=== PATIENT | female | born 1995 | race Caucasian/White ===

== ENCOUNTER 2021-10-01 14:58 | Emergency (ER) | payer OTHER, SELFPAY ==
--- NOTE | ~2021-10-01 | XR_ITS ---
XR chest 2V DATE: 10/01/2021 15:16 INDICATION: Shortness of breath, palpitations for 2 weeks TECHNIQUE: PA and lateral views COMPARISON: None FINDINGS: Normal heart size. No hilar or mediastinal enlargement. No pulmonary infiltrate or consolid ation, pleural effusion or pulmonary vascular congestion or pneumothorax. Included skeletal structures are unremarkable. IMPRESSION: No active cardiopulmonary disease Reviewed, dictated and finalized at location A.
--- NOTE | 2021-10-01 15:00 | ECG_ITS ---
Measurements Intervals [place] Rate: 89 P: 58 VT: 153 QRS: 42 QRSD: 88 T: 53 QT: 339 QTc: 414 Interpretive Statements SINUS RHYTHM NONSPECIFIC T-WAVE ABNORMALITY Electronically Signed On 10-02-2021 11:09:19 CDT by Dariel Hernandez M.D.
[2021-10-01 15:02] VITALS: BP 133/81; PULSE 94; RESP 18; TEMP 36.7; O2SAT 100
[2021-10-01 15:13] LABS: Basophils Percent Auto 0.3 % (0.2-1.2); Eosinophils Absolute Auto 0.2 K/mm3 (0-0.3); Eosinophils Percent Auto 1.4 % (0-4.4); Hematocrit 46.9 % (37.0-47.0); Hemoglobin 16.8 g/dL (12.0-15.0); Immature Granulocyte Absolute 0.02 K/mm3 (0.00-0.031); Immature Granulocyte Percent A 0.2 % (0-0.5); Lymphocytes Absolute Auto 3.07 K/mm3 (0.9-3.2); Lymphocytes Percent Auto 27.1 % (18.3-44.2); Mean Corpuscular HGB Conc 35.8 g/dl (32-36); Mean Corpuscular Hemoglobin 32.7 pg (26-34); Mean Corpuscular Volume 91.4 fl (80-100); Mean Platelet Volume 10.4 fl (7.4-10.4); Monocytes Absolute Auto 0.5 K/mm3 (0.1-0.6); Monocytes Percent Auto 4.7 % (2.6-8.5); Neutrophils Absolute Auto 7.5 K/mm3 (1.3-6.7); Neutrophils Percent Auto 66.3 % (45.5-73.1); Platelet Count Result 301 k/mm3 (150-375); Red Blood Count 5.13 M/mm3 (4.2-5.4); Red Cell Distribution Width 12.3 % (11.5-14.5); White Blood Count 11.3 K/mm3 (4.5-10.0)
[2021-10-01 15:24] LABS: Alanine Aminotransferase 16 U/L (6-35); Albumin Level 4.8 g/dL (3.5-5.1); Alkaline Phosphatase 65 U/L (38-126); Anion Gap 8 mmol/L (8-16); Aspartate Amino Transferase 22 U/L (14-36); Bilirubin,Total 0.4 mg/dL (0.2-1.3); Blood Urea Nitrogen 11 mg/dL (7-17); Calcium 9.3 mg/dL (8.4-10.2); Carbon Dioxide 25 mmol/L (22-30); Chloride 105 mmol/L (98-107); Estimated CRCL calculation 106 ml/min; Estimated Glomerular Filt Rate > 60; Glucose 94 mg/dL (65-110); Sodium 138 mmol/L (137-145)
[2021-10-01 16:31] VITALS: BP 108/72; PULSE 88; RESP 20; TEMP 36.7; O2SAT 99
--- NOTE | 2021-10-01 16:39 | ED.GENADULT ---
HPI - General Adult General Chief complaint: Shortness of Breath/Dyspnea Stated complaint: increased HR, SOB, dizzy Time Seen by Provider: 10/01/21 16:31 Source: RN notes reviewed History of Present Illness HPI narrative: Patient presents emergency room from home for palpitations. Patient states for the past 2 weeks she is feeling her heart is racing. She states that this is a constant feeling for the past 2 weeks and she feels like the heart is always racing nothing seems to make it better or worse she does note some mild shortness of breath with these symptoms but denies any chest pain she also notes that when she stands up she feels lightheaded and improves when she lays down patient denies any fevers or chills abdominal pain nausea vomiting diarrhea or any other symptoms states that she did recently stop taking her lorazepam cold turkey 2 weeks ago and the symptoms seem to occur at the time that occurred she states she had been on lorazepam for chronic anxiety but did not like the way it made her felt so she is decided to stop taking it Related Data Allergies Allergy/AdvReac Type Severity Reaction Status Date / Time No Known Allergies Allergy Verified 12/07/15 20:22 Review of Systems Review of Systems: Gen.: Denies fevers or chills ENT: Denies congestion Respiratory: Ports shortness of breath CV: See HPI GI: Denies abdominal pain nausea, emesis or diarrhea denies burning, urgency, frequency or hematuria Musculoskeletal: Denies back pain or muscle pain Neuro: Denies numbness, tingling, weakness or focal weakness reports lightheadedness with standing Skin: Denies rash Except as documented, all other systems reviewed and negative [facility] Past Medical History Medical History (Updated 10/01/21 @ 19:25 by Sanford Carrizales DO) Anxiety Social History Social History (Updated 10/01/21 @ 16:41 by Sanford Carrizales DO) Smoking status: Never smoker Alcohol intake: current Exam Narrative: APPEARANCE: No acute distress, nontoxic, resting in bed EYES: EOMI HEENT: Normocephalic, atraumatic, OMM RESPIRATORY: No respiratory distress Clear to auscultation bilaterally with no rhonchi wheezing or rales. CARDIOVASCULAR: Regular rate and rhythm without murmurs rubs or gallops. ABDOMINAL: Soft, nontender, nondistended, no rebound or guarding MUSCULOSKELETAl: Moves all extremities. No clubbing, cyanosis or edema. NEURO: Awake and alert. Following commands, speech normal, no focal deficits SKIN:: Warm, dry. No rashes lesions or abrasions PSYCHIATRIC: Normal affect/mood, Course Course Emergency Course: Patient remained on cardiac exercise specialist no arrhythmias noted Discussed with patient results of workup and diagnosis. Discussed need for follow-up with primary care, proper use of medication, and reasons to return to the emergency department. Patient understands and agrees to current treatment plan Vital Signs Vital signs: Vital Signs Temperature 98.1 F 10/01/21 15:02 Pulse Rate 94 10/01/21 15:02 Respiratory Rate 18 10/01/21 15:02 Blood Pressure 133/81 10/01/21 15:02 Pulse Oximetry 100 10/01/21 15:02 Oxygen Delivery Room Air 10/01/21 15:02 Temperature 98.0 F 10/01/21 16:31 Pulse Rate 72 10/01/21 19:19 Respiratory Rate 18 10/01/21 19:19 Blood Pressure 138/72 10/01/21 19:19 Pulse Oximetry 99 10/01/21 19:19 Oxygen Delivery Room Air 10/01/21 16:31 Medical Decision Making MDM Narrative Medical decision making narrative: Patient presents for heart palpitations and the feeling of dizziness described as lightheadedness when she stands up ongoing for the past 2 weeks since she stopped taking lorazepam. Patient with negative D-dimer troponin negative in the ER with symptoms constant for the past 2-week remained on cardiac exercise specialist with no arrhythmias noted lab work within normal limits feel patient may be discharged follow-up as an outpatient Vital Signs Vital Signs: Vital Signs Tempera
[2021-10-01 16:46] VITALS: BP 122/81; PULSE 62
[2021-10-01 16:47] VITALS: BP 117/83; BP 126/78; PULSE 80; PULSE 93
[2021-10-01] MEDS: SODIUM CHLORIDE 0.9% IV 1,000 ML 999 ML IV CONT (16:57)
[2021-10-01 17:58] LABS: D Dimer < 0.27 ug/mL (<0.48)
[2021-10-01 18:27] LABS: Troponin I < 0.012 ng/mL (0.000-0.034)
[2021-10-01 19:19] VITALS: BP 138/72; PULSE 72; RESP 18; O2SAT 99
== END 2021-10-01 19:34 | disposition home or self-care (01) ==
PROVIDERS: Emergency Provider Emergency Medicine; PCP Internal Medicine
DX: R00.2 Palpitations (principal); R42 Dizziness and giddiness; F41.9 Anxiety disorder, unspecified
CPT/HCPCS: 36415; 71046; 80053; 81025; 83735; 84443; 84484; 85025; 85380; 93005; 96360; 99284; J7030

== ENCOUNTER 2022-02-21 17:11 | Emergency (ER) | payer OTHER, SELFPAY ==
[2022-02-21] VITALS (17 sets, daily range): BP systolic 98–123; BP diastolic 55–90; PULSE 65–87; RESP 13–21; TEMP 36.6; O2SAT 99–100
--- NOTE | ~2022-02-21 | CT_ITS ---
EXAMINATION: CTA chest PE protocol DATE: 02/21/2022 22:00 INDICATION: Dyspnea, chest heaviness. Elevated d-dimer. TECHNIQUE: Computed tomography angiography (CTA) of the chest was performed with 100 mL Omnipaque-350 intravenous contrast timed to evaluate the pulmonary arteries. Coronal maximum intensity projection 3D-reconstructions were created by the technologist. Automated exposure control and iterative reconst ruction technique were employed. Exam dose: 547.51 mGy-cm total exam DLP. COMPARISON: 02/21/2022 PA and lateral chest FINDINGS: The pulmonary arteries are moderately opacified, without evidence of pulmonary embolism. No thoracic aortic aneurysm or dissection. Normal heart size. No pericardial or pleural effusion. No hilar or mediastinal mass lesion or lymphadenopathy. No pulmonary infiltrate or consolidation or pulmonary mass lesion. No suspicious osteolytic or osteoblastic lesions.. IMPRESSION: Negative; no evidence of pulmonary embolism Reviewed, dictated and finalized at Location A. Reviewed, dictated and finalized at location A.
--- NOTE | ~2022-02-21 | XR_ITS ---
XR chest 2V DATE: 02/21/2022 17:33 INDICATION: Chest pain, midsternal to left-sided pressure for 8 months, shortness of breath TECHNIQUE: PA and lateral views COMPARISON: 10/01/2021 2 view chest FINDINGS: Normal heart size. No hilar or mediastinal enlargement. No pulmonary infiltrate or consolid ation, pleural effusion or pulmonary vascular congestion or pneumothorax. IMPRESSION: Negative chest Reviewed, dictated and finalized at location A. IMPRESSION: Negative chest
--- NOTE | 2022-02-21 17:13 | ECG_ITS ---
Measurements Intervals [place] Rate: 93 P: 44 [place]: 162 QRS: 30 QRSD: 77 T: 38 QT: 331 QTc: 414 Interpretive Statements SINUS RHYTHM BASELINE ARTIFACT LOW-VOLTAGE QRS IN PRECORDIAL LEADS BORDERLINE ECG COMPARED TO ECG 10/01/2021 15:07:09 NO SIGNIFICANT CHANGES Electronically Signed On 02-22-2022 16:35:40 CDT by Gideon Hayes M.D.
[2022-02-21 17:37] LABS: Basophils Percent Auto 0.3 % (0.2-1.2); Eosinophils Absolute Auto 0.2 K/mm3 (0-0.3); Eosinophils Percent Auto 1.6 % (0-4.4); Hematocrit 42.3 % (37.0-47.0); Hemoglobin 15.3 g/dL (12.0-15.0); Immature Granulocyte Absolute 0.04 K/mm3 (0.00-0.031); Immature Granulocyte Percent A 0.4 % (0-0.5); Lymphocytes Absolute Auto 3.15 K/mm3 (0.9-3.2); Lymphocytes Percent Auto 32.4 % (18.3-44.2); Mean Corpuscular HGB Conc 36.2 g/dl (32-36); Mean Corpuscular Volume 88.5 fl (80-100); Mean Platelet Volume 10.4 fl (7.4-10.4); Monocytes Absolute Auto 0.6 K/mm3 (0.1-0.6); Monocytes Percent Auto 6.1 % (2.6-8.5); Neutrophils Absolute Auto 5.8 K/mm3 (1.3-6.7); Neutrophils Percent Auto 59.2 % (45.5-73.1); Platelet Count Result 297 k/mm3 (150-375); Red Blood Count 4.78 M/mm3 (4.2-5.4); Red Cell Distribution Width 12.6 % (11.5-14.5); White Blood Count 9.7 K/mm3 (4.5-10.0)
[2022-02-21 17:45] LABS: Prothrombin Time 12.9 Seconds (11.1-14.7)
[2022-02-21 17:47] LABS: Partial Thromboplastin Time 22.5 SECONDS (22.3-36.8)
[2022-02-21 18:07] LABS: Alanine Aminotransferase 19 U/L (6-35); Albumin Level 4.4 g/dL (3.5-5.1); Alkaline Phosphatase 42 U/L (38-126); Anion Gap 11 mmol/L (8-16); Aspartate Amino Transferase 26 U/L (14-36); Bilirubin,Total 0.4 mg/dL (0.2-1.3); Blood Urea Nitrogen 17 mg/dL (7-17); Calcium 8.8 mg/dL (8.4-10.2); Carbon Dioxide 22 mmol/L (22-30); Chloride 104 mmol/L (98-107); Estimated CRCL calculation 105 ml/min; Estimated Glomerular Filt Rate > 60; Glucose 94 mg/dL (65-110); Lipase 73 U/L (23-300); Sodium 137 mmol/L (137-145)
[2022-02-21 18:15] LABS: Troponin I < 0.012 ng/mL (0.000-0.034)
[2022-02-21] MEDS: ALBUTEROL SULFATE NEB 2.5 MG/3 ML INH 5 MG INHALATION (20:36)
[2022-02-21] MEDS: IPRATROPIUM BR 0.02% INH SOLN 0.5 MG/2.5 ML VIAL INHALATION (20:37)
--- NOTE | 2022-02-21 21:45 | ED.CHESTPAIN ---
HPI - Chest Pain General Chief Complaint: Chest Pain Stated Complaint: chest feels heavy Time Seen by Provider: 02/21/22 20:02 Source: RN notes reviewed History of Present Illness HPI narrative: Patient presents emergency room from home for chest pain. Patient states that she has been having chest heaviness for the past 8 months since she had COVID. She states that the heaviness is constantly there is not resolved over the past 8 months states that she feels like she cannot take a deep breath and it makes her feel short of breath she states nothing makes his symptoms better or worse she denies any fevers or chills abdominal pain nausea vomiting or any other Related Data Allergies Allergy/AdvReac Type Severity Reaction Status Date / Time No Known Allergies Allergy Verified 02/21/22 20:07 Review of Systems Review of Systems: Gen.: Denies fevers or chills ENT: Denies congestion Respiratory: Reports shortness of breath CV: Reports chest pain GI: Denies abdominal pain nausea, emesis or diarrhea Musculoskeletal: Denies back pain or muscle pain Neuro: Denies numbness, tingling, weakness or focal weakness Skin: Denies rash Except as documented, all other systems reviewed and negative [facility] Past Medical History Medical History Anxiety COVID-19 Encounter to establish care Major depression Sinus tachycardia Tobacco abuse Surgical History Surgical History (Updated 01/17/22 @ 10:46 by RAJAN Phillips) History of tonsillectomy (~2009) Family History Family History (Updated 01/17/22 @ 10:45 by RAJAN Phillips) Mother Diabetes mellitus Depression Anxiety Social History Social History Smoking packs per day: 0.5 Smoking cigarettes per day: 10.0 Smoking status: Current every day smoker Alcohol intake: current Drinks per week: 6 Alcohol use details: Beer Substance use: never Exam Narrative: APPEARANCE: No acute distress, nontoxic, resting in bed EYES: EOMI HEENT: Normocephalic, atraumatic, OMM RESPIRATORY: No respiratory distress Clear to auscultation bilaterally with no rhonchi wheezing or rales. CARDIOVASCULAR: Regular rate and rhythm without murmurs rubs or gallops. ABDOMINAL: Soft, nontender, nondistended, no rebound or guarding MUSCULOSKELETAl: Moves all extremities. No clubbing, cyanosis or edema. NEURO: Awake and alert. Following commands, speech normal, no focal deficits SKIN:: Warm, dry. No rashes lesions or abrasions PSYCHIATRIC: Normal affect/mood, Course Course Emergency Course: Following breathing treatment patient is feeling mildly improved Discussed with patient results of workup and diagnosis. Discussed need for follow-up with primary care, proper use of medication, and reasons to return to the emergency department. Patient understands and agrees to current treatment plan Vital Signs Vital signs: Vital Signs Temperature 97.9 F 02/21/22 17:22 Pulse Rate 86 02/21/22 17:22 Respiratory Rate 18 02/21/22 17:22 Blood Pressure 123/90 02/21/22 17:22 Pulse Oximetry 100 02/21/22 17:22 Oxygen Delivery Room Air 02/21/22 17:22 Temperature 97.9 F 02/21/22 17:22 Pulse Rate 76 02/21/22 21:45 Respiratory Rate 19 02/21/22 21:45 Blood Pressure 115/73 02/21/22 21:34 Pulse Oximetry 100 02/21/22 21:45 Oxygen Delivery Room Air 02/21/22 20:39 MDM - Chest Pain MDM Narrative Medical decision making narrative: Patient's EKGs and labs are without significant high risk changes. Cardiac risk factors reviewed. Patient is felt likely low risk for ACS and reasonable for further risk stratification testing as an outpatient. No aneurysm PE or pneumonia seen on evaluation CTA chest. Patient's pain is been constant for months with negative troponin in the ED.. Patient is felt to be a reasonable candidate for continued evaluation as an outpatient
== END 2022-02-21 22:36 | disposition home or self-care (01) ==
PROVIDERS: Emergency Provider Emergency Medicine; PCP Nurse Practitioner Family
DX: R07.89 Other chest pain (principal); Z86.16 Personal history of COVID-19; F17.210 Nicotine dependence, cigarettes, uncomplicated; R94.31 Abnormal electrocardiogram [ECG] [EKG]
CPT/HCPCS: 36415; 71046; 71275; 80053; 83690; 84484; 85025; 85380; 85610; 85730; 93005; 94640; 99284; Q9967

== ENCOUNTER 2023-04-02 09:34 | Observation (INO) | payer OTHER, SELFPAY ==
[2023-04-02] VITALS (18 sets, daily range): BP systolic 101–138; BP diastolic 39–86; PULSE 66–92; RESP 16–20; TEMP 36.3–36.8; O2SAT 98–100; BMI 35.2
--- NOTE | ~2023-04-02 | US_ITS ---
EXAMINATION: US soft tissue pelvic DATE: 04/02/2023 12:09 INDICATION: A few days of perirenal pain and erythema TECHNIQUE: Multiple grayscale and Doppler ultrasound images of the perianal region of concern were ob tained. COMPARISON: None FINDINGS: 1.6 x 1.6 x 1.6 cm region in the superficial subcutaneous tissues to the left of the anus which is pr imarily hypoechoic with small peripheral anechoic region. There is induration in the overlying subder mal tissues and prominent surrounding hyperemia on color Doppler. No evident internal vascular flow o n color Doppler. There is a 3 mm diameter hypoechoic likely fistulous tract extending from the region of the anus to to indicate with the lesion. The lesion extends to within <3 mm the skin surface. The re is an additional hypoechoic region extending from the lesion. The skin surface appropriate dilatat ion of the fire management officer no associated skin defect is appreciated. IMPRESSION: 1. Cellulitis surrounding a 1.6 cm diameter likely perianal abscess with 3 mm diameter likely fistulo us tract extending towards the anus. Reviewed, dictated and finalized at location A. SPORTATION DEPARTMENT SUPERVISOR IMPRESSION: 1. Cellulitis surrounding a 1.6 cm diameter likely perianal abscess with 3 mm d iameter likely fistulous tract extending towards the anus.
--- NOTE | ~2023-04-02 | US_ITS ---
Pelvic ultrasound. Clinical History: First trimester , assess for dates and viability Technique: Realtime transabdominal and transvaginal scanning of the pelvis was performed. Color flow Doppler and Doppler spectral analysis were performed. Findings: The uterus is anteverted, and contains an intrauterine gestation. [place]-rump length of 4.8 cm corresponds to an estimated gestational age of 11 weeks 4 days. heart rate is 167 bpm. Proba ble small subchronic hemorrhage measuring 1.7 x 1.3 x 1.5 cm. The right ovary is not visualized. No significant right ovarian or adnexal mass is seen. The left ovary measures 2.0 x 2.8 x 1.5 cm. No significant left ovarian or adnexal mass is seen. There is no evidence of free fluid in the cul de sac. Impression: Live intrauterine gestation with estimated gestational age of 11 weeks 4 days. heart rate is 16 7 bpm. Probable small subchorionic hemorrhage, as detailed above. Reviewed, dictated and finalized at location . ING UNIT MECHANIC Impression: Live intrauterine gestation with estimated gestational age of 11 weeks 4 days. heart rate is 167 bpm. Probable small subchorionic hemorrhage, as detailed above.
--- NOTE | 2023-04-02 09:50 | ED.GENADULT ---
HPI - General Adult General Chief complaint: Unspecified <OPAL Brasher Last Filed: 04/02/23 17:24> Stated complaint: think i have infection, pain to sit down <OPAL Brasher Last Filed: 04/02/23 17:24> Time Seen by Provider: 04/02/23 09:43 <OPAL Brasher Last Filed: 04/02/23 17:24> Source: patient <OPAL Brasher Last Filed: 04/02/23 17:24> Mode of arrival: ambulatory <OPAL Brasher Filed: 04/02/23 17:24> Limitations: no limitations <OPAL Brasher Last Filed: 04/02/23 17:24> History of Present Illness HPI narrative: Patient is a 27 y/o female who presents to the ED with c/o perineal pain. Patient reports she noticed an area of pain to the left of her anus in her perineal region around 4 days ago. The pain progressively worsened 2 days ago. She states she is having difficulty sitting down. She is unsure if she has a hemorrhoid or other infection. States she has had a previous hemorrhoid, but denied issues with it. She reports chills, denies fever. Patient is currently 11 weeks gestation, . She denies any abdominal pain or vaginal bleeding. Denies nausea, vomiting. Denies pain with BM, constipation, rectal bleeding, melena. OBGYN is Dr. Samuel. <OPAL Brasher Last Filed: 04/02/23 17:24> Related Data Home medications: Home Medications Medication Instructions Recorded Confirmed lorazepam 0.5 mg tablet 0.5 mg PO BID 04/02/23 04/02/23 <OPAL Brasher Last Filed: 04/02/23 17:24> Allergies/adverse reactions: Allergies Allergy/AdvReac Type Severity Reaction Status Date / Time No Known Allergies Allergy Verified 04/02/23 09:45 <OPAL Brasher Last Filed: 04/02/23 17:24> Review of Systems Review of Systems: CONSTITUTIONAL: See HPI. CARDIOVASCULAR: Denies chest pain. RESPIRATORY: Denies dyspnea. GASTROINTESTINAL: Denies abdominal pain, nausea, vomiting, constipation, or diarrhea. GENITOURINARY: Denies vaginal bleeding, dysuria or hematuria. SKIN: See HPI. <Padma Malagon PA-C - Last Filed: 04/02/23 17:24> All systems reviewed & are unremarkable except as noted in HPI and below <Padma Malagon PA-C - Last Filed: 04/02/23 17:24> PMFSH Past Medical History Medical History: Medical History Anxiety Atypical chest pain BMI 32.0-32.9,adult BMI 34.0-34.9,adult COVID-19 Encounter to establish care Major depression Sinus tachycardia Tobacco abuse <Padma Malagon PA-C - Last Filed: 04/02/23 17:24> Surgical History Surgical History: Surgical History History of tonsillectomy (~2009) <Padma Malagon PA-C - Last Filed: 04/02/23 17:24> Family History Family History: Family History Mother Diabetes mellitus Depression Anxiety <Padma Malagon PA-C - Last Filed: 04/02/23 17:24> Social History Social History: Social History Smoking packs per day: 0.5 Smoking cigarettes per day: 10.0 Smoking status: Current every day smoker Alcohol intake: never Alcohol use details: Occasionally Substance use: never Substance use type: does not use Lack of Transportation: No Lack of Food: Never True Current Housing: I Have Housing Concerned About Future Housing: No Difficulty Paying Gas/Electric Bills: No Difficulty Paying for Meds: No Currently Unemployed: YES Education: Grade School Difficulty w/ Childcare or Family Care: No Spiritual care concerns: No <Padma Malagon PA-C - Last Filed: 04/02/23 17:24> Exam Narrative: GENERAL: Mildly uncomfortable appearing, obese with BMI 35.2, non-toxic, in no acute d
[2023-04-02 10:32] LABS: Basophils Percent Auto 0.2 % (0.2-1.2); Eosinophils Percent Auto 0.3 % (0-4.4); Hematocrit 37.5 % (37.0-47.0); Hemoglobin 13.1 g/dL (12.0-15.0); Immature Granulocyte Absolute 0.04 K/mm3 (0.00-0.031); Immature Granulocyte Percent A 0.4 % (0-0.5); Lymphocytes Absolute Auto 1.53 K/mm3 (0.9-3.2); Lymphocytes Percent Auto 14.7 % (18.3-44.2); Mean Corpuscular HGB Conc 34.9 g/dl (32-36); Mean Corpuscular Hemoglobin 31.8 pg (26-34); Mean Platelet Volume 10.6 fl (7.4-10.4); Monocytes Absolute Auto 0.6 K/mm3 (0.1-0.6); Monocytes Percent Auto 5.7 % (2.6-8.5); Neutrophils Absolute Auto 8.2 K/mm3 (1.3-6.7); Neutrophils Percent Auto 78.7 % (45.5-73.1); Platelet Count Result 244 k/mm3 (150-375); Red Blood Count 4.12 M/mm3 (4.2-5.4); Red Cell Distribution Width 12.1 % (11.5-14.5); White Blood Count 10.4 K/mm3 (4.5-10.0)
[2023-04-02 10:42] LABS: Alanine Aminotransferase 8 U/L (6-35); Alkaline Phosphatase 54 U/L (38-126); Anion Gap 8 mmol/L (8-16); Aspartate Amino Transferase 14 U/L (14-36); Bilirubin,Total 0.3 mg/dL (0.2-1.3); Blood Urea Nitrogen 10 mg/dL (7-17); Calcium 8.8 mg/dL (8.4-10.2); Carbon Dioxide 24 mmol/L (22-30); Chloride 103 mmol/L (98-107); Estimated CRCL calculation 130 ml/min; Estimated Glomerular Filt Rate > 60; Glucose 96 mg/dL (65-110); Sodium 135 mmol/L (137-145)
[2023-04-02] MEDS: ACETAMINOPHEN 500 MG TABLET 1000 MG PO (11:20)
[2023-04-02] MEDS: SODIUM CHLORIDE 0.9% IV 1,000 ML 999 ML IV CONT (14:34)
[2023-04-02] MEDS: MORPHINE SULFATE (*CRX) 4 MG/ML INJ IV PUSH (14:34)
[2023-04-02] MEDS: PIPERACILLN/TAZ 3.375GM/NS50ML 3.375 GM/50 ML BAG IVPB ×3 (14:35→23:42)
--- NOTE | 2023-04-02 15:48 | PM.IMHP ---
H&P: HPI History of Present Illness Date/Time: 04/02/23 15:48 Chief Complaint: Perianal pain Narrative: This is a 27-year-old female who is 11 weeks gestation, who presented to the ER today with complaints of perianal pain. She initially noticed some discomfort around her anus about 4 days ago. Two days ago, this became more severe to the point where she was uncomfortable even when lying on her side. Denies fevers, abdominal pain, nausea, or vomiting. She has morning sickness and chills that she associates with her . Her pain progressively worsened and she decided to come into the ER for evaluation today. [place] [id number]. Soft tissue ultrasound showed cellulitis surrounding a 1.6 cm diameter likely perianal abscess with 3 mm diameter likely fistulous tract extending towards the anus. She continued to have significant pain in the ER after receiving analgesics. She is now admitted in the setting of a perianal abscess. She was given a dose of IV Zosyn in the ER and this has been continued. She denies a history of perirectal or perianal abscesses in the past. She denies a known history of IBD or a family history of IBD. Review of Systems Review of Systems: All systems reviewed & are unremarkable except as noted in HPI and below PMFSH Past Medical History Medical History Anxiety Atypical chest pain BMI 32.0-32.9,adult BMI 34.0-34.9,adult COVID-19 Encounter to establish care Major depression Sinus tachycardia Tobacco abuse Surgical History Surgical History History of tonsillectomy (~2009) Family History Family History Mother Diabetes mellitus Depression Anxiety Social History Social History Smoking packs per day: 0.5 Smoking cigarettes per day: 10.0 Smoking status: Current every day smoker Alcohol intake: current Alcohol use details: Occasionally Substance use: never Substance use type: does not use Lack of Transportation: No Lack of Food: Never True Current Housing: I Have Housing Concerned About Future Housing: No Difficulty Paying Gas/Electric Bills: No Difficulty Paying for Meds: No Currently Unemployed: No Education: High School Diploma/GED Difficulty w/ Childcare or Family Care: No Meds Home Medications and Allergies Home Medications Medication Instructions Recorded Confirmed Type citalopram 20 mg tablet 20 mg PO DAILY #30 tabs 03/14/23 Rx Allergies Allergy/AdvReac Type Severity Reaction Status Date / Time No Known Allergies Allergy Verified 04/02/23 09:45 Vital Signs Vital Signs - 24 hr 04/02/23 09:44 04/02/23 11:23 04/02/23 11:22 Temperature 97.3 F L Pulse Rate 88 67 73 Respiratory Rate 18 20 16 Blood Pressure 138/58 L 115/58 L Pulse Oximetry 100 100 100 04/02/23 11:23 04/02/23 11:31 04/02/23 11:45 Temperature Pulse Rate 71 74 76 Respiratory Rate 20 19 20 Blood Pressure 115/58 L 115/85 Pulse Oximetry 100 100 04/02/23 11:46 04/02/23 12:00 04/02/23 12:15 Temperature Pulse Rate 74 66 74 Respiratory Rate 20 18 19 Blood Pressure 119/81 Pulse Oximetry 99 99 100 04/02/23 12:30 04/02/23 12:53 04/02/23 13:00 Temperature Pulse Rate 80 92 72 Respiratory Rate 19 19 19 Blood Pressure Pulse Oximetry 99 100 99 04/02/23 13:01 04/02/23 14:49 Temperature Pulse Rate 72 83 Respiratory Rate 19 18 Blood Pressure 107/68 103/86 Pulse Oximetry 98 99 Exam Const: General: comfortable and no acute distress Nutritional Appearance: overweight Orientation/consciousness: patient oriented x3 HENMT: Head: normocephalic and atraumatic Ears: hearing grossly normal bilaterally Mouth: Yes moist mucous membranes Eyes: General: appearance normal, both eyes
[2023-04-02] MEDS: METOCLOPRAMIDE HCL INJ 10 MG/2 ML VIAL IV PUSH (16:29)
--- NOTE | 2023-04-02 17:15 | ADMGEN ---
This patient, Vanesa Preciado, was admitted to Virtual Bed 3rd Floor-2. Patient/family oriented to hospital policies and general routines including ID bracelet, bed and alarms, visiting hours, pain management, procedures, bathroom and other care routines, personal items, smoking policy, room service/diet, and visiting hours. Information on how to activate the Rapid Response Team has been discussed. Patient/Family are encouraged to report perceived risks to care and to ask questions if they do not understand what they are told or what they should do.
[2023-04-02] MEDS: WITCH HAZEL 40 PADS 1 PAD TOPICAL (20:27)
[2023-04-02] MEDS: HYDROcodone/acetaminophen (*CRX) 5-325 MG TABLET 1 TAB PO (20:29)
--- NOTE | 2023-04-03 01:57 | PC.NURSE ---
Pt called me into room. Pt stated that she felt some relief of pressure from cyst. Cyst opened and is weeping when moving skin around. Tender to touch and manipulation.
[2023-04-03] MEDS: HYDROcodone/acetaminophen (*CRX) 5-325 MG TABLET 1 TAB PO ×2 (02:52→11:33)
[2023-04-03] MEDS: PIPERACILLN/TAZ 3.375GM/NS50ML 3.375 GM/50 ML BAG IVPB ×3 (05:26→17:06)
[2023-04-03 06:00] VITALS: BP 95/31; PULSE 69; RESP 18; TEMP 36.6; O2SAT 99
--- NOTE | 2023-04-03 07:54 | WPDCN ---
Assessment and Plan Assessment and plan (1) Perianal abscess: Code(s): K61.0 - Anal abscess Status: Acute Plan 27-year-old multiparous female at 11 weeks gestation with gila anal abscess. She is being treated by General surgery. We will determine the status of the intrauterine gestation in terms of viability. No evidence of threatened or missed . To observe beyond that. HPI Data of Consult Date/Time: 04/03/23 07:54 Requesting Physician: Rich Montanez MD Primary Care Provider: Jess Villalpando NP Consult Narrative Narrative: Vanesa Preciado is a 27 year old female 2 para 1001 at 11 weeks gestation with history of a previous term vaginal . She has an unremarkable medical history. She is admitted for pelvic abscess. She denies any contractions, cramping, vaginal bleeding. Denies any loss of fluid. Denies any headaches, blurry vision, epigastric pain. She denies any nausea, vomiting, fever, chills. She denies any chest pain or shortness of breath. PMFSH Past Medical History Medical History Anxiety Atypical chest pain BMI 32.0-32.9,adult BMI 34.0-34.9,adult COVID-19 Encounter to establish care Major depression Sinus tachycardia Tobacco abuse Surgical History Surgical History History of tonsillectomy (~2009) Family History Family History Mother Diabetes mellitus Depression Anxiety Social History Social History Smoking packs per day: 0.5 Smoking cigarettes per day: 10.0 Years smoked: 15 Smoking pack-years: 7.50 Smoking status: Current every day smoker Tobacco type: cigarettes Alcohol intake: never Alcohol use details: Occasionally Substance use: never Substance use type: does not use Lack of Transportation: No Lack of Food: Never True Current Housing: I Have Housing Concerned About Future Housing: No Difficulty Paying Gas/Electric Bills: No Difficulty Paying for Meds: No Currently Unemployed: YES Education: Grade School Difficulty w/ Childcare or Family Care: No Spiritual care concerns: No Meds Home Medications and Allergies Home Medications Medication Instructions Recorded Confirmed Type lorazepam 0.5 mg tablet 0.5 mg PO BID 04/02/23 04/02/23 History Allergies Allergy/AdvReac Type Severity Reaction Status Date / Time No Known Allergies Allergy Verified 04/02/23 18:16 Vital Signs Vital Signs - 24 hr 04/02/23 09:44 04/02/23 11:23 04/02/23 11:22 Temperature 97.3 F L Pulse Rate 88 67 73 Respiratory Rate 18 20 16 Blood Pressure 138/58 L 115/58 L Pulse Oximetry 100 100 100 Oxygen Delivery 04/02/23 11:23 04/02/23 11:31 04/02/23 11:45 Temperature Pulse Rate 71 74 76 Respiratory Rate 20 19 20 Blood Pressure 115/58 L 115/85 Pulse Oximetry 100 100 Oxygen Delivery 04/02/23 11:46 04/02/23 12:00 04/02/23 12:15 Temperature Pulse Rate 74 66 74 Respiratory Rate 20 18 19 Blood Pressure 119/81 Pulse Oximetry 99 99 100 Oxygen Delivery 04/02/23 12:30 04/02/23 12:53 04/02/23 13:00 Temperature Pulse Rate 80 92 72 Respiratory Rate 19 19 19 Blood Pressure Pulse Oximetry 99 100 99 Oxygen Delivery 04/02/23 13:01 04/02/23 14:49 04/02/23 16:47 Temperature Pulse Rate 72 83 70 Respiratory Rate 19 18 17 Blood Pressure 107/68 103/86 Pulse Oximetry 98 99 100 Oxygen Delivery 04/02/23 17:47 04/02/23 17:52 04/02/23 20:39 Temperature 97.6 F 98.2 F Pulse Rate 66 68 Respiratory Rate 18 18 18 Blood Pressure 105/51 L 101/39 L Pulse Oximetry 100 100 99 Oxygen Delivery Room Air 04/02/23 20:00 04/03/23 06:00 Temperature 97.8 F Pulse Rate 68 69 Respiratory Rate 18 18 Blood Pressure 95/31 L Pulse Oximetry 99 99
[2023-04-03 08:00] VITALS: RESP 18; O2SAT 99
--- NOTE | 2023-04-03 11:05 | PM.PNGS ---
Progress Note: A&P Assessment and Plan (1) Perianal abscess: Code(s): K61.0 - Anal abscess Status: Acute Assessment and Plan: Spontaneously drained last night with some relief in pain. There is a more fluctuant area today and no opening to allow continued drainage. Discussed proceeding with incision and drainage of the perianal abscess with the patient today either at the bedside versus in the OR with sedation. She has already eaten this morning and couldn't have this done in the OR today. Given her , there are less risks with doing local anesthetic and doing this at the bedside. Since her pain is much better, it seems like she could tolerate a bedside I&D today. I will have the nurse gather supplies and reassess later today with Dr. Montanez. (2) Perianal fistula: Code(s): K60.3 - Anal fistula Status: Acute Assessment and Plan: Will likely eventually need a rectal exam under anesthesia when timing is ideal with her or even after she delivers. (3) First trimester : Code(s): Z34.91 - Encounter for supervision of normal , unspecified, first trimester Status: Acute Assessment and Plan: Appreciate OB input/recommendations. Plan I have discussed the patient's case and plan of care with Dr. Montanez. Subjective Subjective Date/Time Seen: 04/03/23 11:05 Patient reports: no new complaints Interval history: Patient doing better today. Last night she had drainage coming from the perianal abscess. She tried to squeeze out as much drainage as she could and has not noticed any more drainage this morning. She had some relief in her pain once it drained. She feels her pain is much more tolerable. No other complaints at this time. Review of Systems Review of Systems: All systems reviewed & are unremarkable except as noted in HPI and below Exam Const: General: comfortable and no acute distress Orientation/consciousness: patient oriented x3 GI: Other: Perianal abscess with slightly less induration and swelling, and a more fluctuant 1-2 cm area in the center. Much less tender today. Objective Data Vital Signs Vital Signs: Vital Signs - 24 hr 04/02/23 11:23 04/02/23 11:22 04/02/23 11:23 Temperature Pulse Rate 67 73 71 Respiratory Rate 20 16 20 Blood Pressure 115/58 L 115/58 L Pulse Oximetry 100 100 100 Oxygen Delivery 04/02/23 11:31 04/02/23 11:45 04/02/23 11:46 Temperature Pulse Rate 74 76 74 Respiratory Rate 19 20 20 Blood Pressure 115/85 119/81 Pulse Oximetry 100 99 Oxygen Delivery 04/02/23 12:00 04/02/23 12:15 04/02/23 12:30 Temperature Pulse Rate 66 74 80 Respiratory Rate 18 19 19 Blood Pressure Pulse Oximetry 99 100 99 Oxygen Delivery 04/02/23 12:53 04/02/23 13:00 04/02/23 13:01 Temperature Pulse Rate 92 72 72 Respiratory Rate 19 19 19 Blood Pressure 107/68 Pulse Oximetry 100 99 98 Oxygen Delivery 04/02/23 14:49 04/02/23 16:47 04/02/23 17:47 Temperature Pulse Rate 83 70 Respiratory Rate 18 17 18 Blood Pressure 103/86 Pulse Oximetry 99 100 100 Oxygen Delivery Room Air 04/02/23 17:52 04/02/23 20:39 04/02/23 20:00 Temperature 97.6 F 98.2 F Pulse Rate 66 68 68 Respiratory Rate 18 18 18 Blood Pressure 105/51 L 101/39 L Pulse Oximetry 100 99 99 Oxygen Delivery Room Air 04/03/23 06:00 04/03/23 08:00 Temperature 97.8 F Pulse Rate 69 Respiratory Rate 18 18 Blood Pressure 95/31 L Pulse Oximetry 99 99 Oxygen Delivery Room Air Intake/Output Intake/Output: Intake & Output 03/31/23 04/01/23 04/02/23 04/03/23 23:59 23:59 23:59 23:59 Intake Total 1100 220 Output Total 800 Balance 1100 -580 Meds/Results Medications: Active Medications Generic Name Dose Route Start Last Admin Trade Name Freq PRN Reason Stop Dose Admin Acetaminophen 650 mg 04/02/23 15:11 Acetaminophen 325 Mg Tablet PO Q4H PRN Mil
[2023-04-03 14:18] VITALS: BP 126/70; PULSE 82; RESP 16; TEMP 36.6; O2SAT 99
[2023-04-03] MEDS: MORPHINE SULFATE (*CRX) 4 MG/ML INJ IV PUSH (15:49)
[2023-04-03] MEDS: LIDOCAINE HCL 1% PF INJ 5 ML VIAL INFILTRATE (16:25)
--- NOTE | 2023-04-03 16:35 | PM.DS ---
DS: Admitting Diagnosis Discharge Date 04/03/2023 Admitting Diagnosis Perianal abscess with possible perianal fistula First trimester DS: Discharge Diagnosis Discharge Diagnosis (1) Perianal abscess: Code(s): K61.0 - Anal abscess Status: Acute (2) Perianal fistula: Code(s): K60.3 - Anal fistula Status: Acute (3) First trimester : Code(s): Z34.91 - Encounter for supervision of normal , unspecified, first trimester Status: Acute DS: Summary Hospital Course Reason for hospitalization: This is a 27-year-old female who is 11 weeks gestation that presented to the ER yesterday with complaints of perianal pain for 4 days. She was found to have a perianal abscess with ultrasound showing a small 1.6 x 1.6 cm perianal abscess him likely fistulous tract extending towards the anus. She was admitted for pain control and IV antibiotics. Hospital Course: She was treated with IV Zosyn. OBGYN was consulted for her . She had a ultrasound that showed a live intrauterine gestation with estimated gestational age of 11 weeks and 4 days, with probable small subchorionic hemorrhage. Her abscess spontaneously drained last night and she had some relief in pain. She underwent bedside incision and drainage of perianal abscess today by Dr. Montanez. Abscess was packed and she is stable for discharge this afternoon. Her pain is controlled on oral analgesics. We will discharge her with follow-up with Dr. Montanez in 1 week. Follow-up with OBGyn as recommended. Status at Discharge Functional status at discharge: independent ambulation Overall status at discharge: patient is back to baseline Time Spent with Patient Time attestation: Total time spent providing and/or coordinating discharge services: Time spent: Less than 30 minutes DS: Data Procedures/Treatments: Incision and drainage of perianal abscess by Dr. Montanez on 04/03/2023 Imaging Radiologist's impression: ITS Impressions Soft Tissue Ultrasound 04/02/23 12:20 IMPRESSION: 1. Cellulitis surrounding a 1.6 cm diameter likely perianal abscess with 3 mm diameter likely fistulous tract extending towards the anus. Ultrasound 04/03/23 09:45 Impression: Live intrauterine gestation with estimated gestational age of 11 weeks 4 days. heart rate is 167 bpm. Probable small subchorionic hemorrhage, as detailed above. Discharge Plan Discharge Attending physician on discharge: Rich Montanez Consulting providers: Jose Samuel; Padma Malagon Discharging Clinician: Aminata Ramirez Anticipated Discharge Date/Time: 04/03/23 16:39 Patient Disposition: Home, Self-Care Activity: other - see discharge instructions Diet: regular Wound Care Instructions: other - see discharge instructions Discharge Instructions: Remove packing tomorrow (04/04/23) and may shower over the incision. Apply a gauze dressing daily and as needed when soiled. Wear mesh underwear over gauze to keep in place. Follow-up with Dr. Montanez in 1 week. Complete all antibiotics. You have also been sent a script for narcotic pain medication, which should only be taken as needed for more severe pain. Otherwise, take Tylenol 1000 mg every 6 hours as needed for mild to moderate pain. Patient Instructions: Antibiotic Form Stand Alone Forms: General Discharge Information Follow-up/Referrals: Jose Samuel MD [Physician] - Keep Reg. Scheduled Appt. Rich Montanez MD [Physician] - 1 Week Discharge Medications: New hydrocodone-acetaminophen 5-325 mg Tablet 1 tablet PO Q6H PRN (Reason: Pain Rated 4-6) Qty: 4 0RF amoxicillin-pot clavulanate 875-125 mg tablet 1 tablet PO Q12H Qty: 10 0RF Continued lorazepam 0.5 mg tablet 0.5 mg PO BID Date of admission: 04/02/23 15:11 Primary Care Provider: Jess Villalpando Admitting Provider: Rich Montanez Attending physician on admission: Rich Montanez
--- NOTE | 2023-04-03 16:54 | W.PM.PROC2 ---
Procedure Note - Detailed Date of Procedure 04/03/23 Pre-op Diagnosis perineal abscess with fistu;a, 11 weeks gestation Post-op Diagnosis Same Procedure Performed Simple incision and drainage of gila rectal abscess Surgeon Rich Montanez MD Teacher Resource Kristen Ramirez NP Anesthesia Local Indications Patient is a 27-year-old female who was 11 weeks most involved a small perirectal abscess on the left anterior region located proximally 7 o'clock with the patient prone. She presents now for a simple incision and drainage procedure of the abscess under local anesthetic at the bedside. Findings Small perirectal abscess left anterior at 7 o'clock with the patient prone. Abscess cavity measured approximately 2cm in diameter. Approximately 2 to 3 cc of pus drained from the abscess cavity. Description of Procedure After informed consent was obtained patient was placed in the left lateral decubitus position on the hospital bed in the patient's room. The area of the left anterior perianal region was then prepped and draped usual sterile fashion with some Betadine. 5Cc of 1% lidocaine without epinephrine due to her intrauterine was injected around the abscess cavity for local anesthetic effect. I then used a 11 blade scalpel and incised the abscess it is most fluctuant area in a radial direction. There was prompt drainage approximately 2 to 3 cc of bloody purulent fluid. I spread into the abscess cavity with a Madyson clamp to break down any loculations. The abscess cavity measured approximately 2cm in diameter. I then packed the abscess cavity with quarter-inch iodoform gauze and then pressure was held an area to achieve hemostasis. Dry 4x4 gauze was placed over the area and disposable underwear was used to hold the dressing in place. The patient tolerated the procedure well no complications. All sponges, needles, and instrument counts were correct at the end procedure. EBL was _2__cc. The patient was left in her hospital bed on the floor in stable condition. Implants None Estimated Blood Loss 2 Urine Output 800 Drains No Packing Yes ( quarter-inch iodoform gauze) Complications No immediate complications Condition Stable Disposition PACU [facility] Billing Surgery - Charge Forward: Surgery Billing
--- NOTE | 2023-04-04 08:51 | WPDHPUPDATE1 ---
History and Physical Update Update Date/Time: April 03, 2023 History and Physical has been reviewed, including an updated exam of the patient. There are NO changes in the patient's condition. Risks, benefits, and alternatives have been discussed and questions answered. Patient agrees to proceed with procedure.
== END 2023-04-03 18:55 | disposition home or self-care (01) ==
LOC: ANHED 09:48 → ANH3MEDSUR 16:26 → ANH2MED 17:45
PROVIDERS: Admitting Provider Surgery; Emergency Provider Physician Assistant; PCP Nurse Practitioner Family; Visit Provider Surgery
DX: O34.71 Maternal care for abnormality of vulva and perineum, first trimester (principal); K61.0 Anal abscess; O99.341 Other mental disorders complicating pregnancy, first trimester; F43.9 Reaction to severe stress, unspecified; F32.9 Major depressive disorder, single episode, unspecified; O99.331 Smoking (tobacco) complicating pregnancy, first trimester; F17.210 Nicotine dependence, cigarettes, uncomplicated; Z86.16 Personal history of COVID-19; Z3A.11 11 weeks gestation of pregnancy; Z81.8 Family history of other mental and behavioral disorders
CPT/HCPCS: 46040; 36415; 76801; 76857; 80053; 85025; 96365; 96366; 96375; 99285; A9270; G0378; G0379; J2270; J2543; J2765; J7030

== ENCOUNTER 2023-10-15 04:55 | Inpatient (IN) | payer OTHER, SELFPAY ==
[2023-10-15] VITALS (329 sets, daily range): BP systolic 78–170; BP diastolic 27–124; PULSE 34–279; TEMP 36.6–36.9; O2SAT 95–100; BMI 37.8
[2023-10-15 05:34] LABS: Basophils Percent Auto 0.1 % (0.2-1.2); Eosinophils Absolute Auto 0.1 K/mm3 (0-0.3); Hematocrit 37.1 % (37.0-47.0); Hemoglobin 13.2 g/dL (12.0-15.0); Immature Granulocyte Absolute 0.05 K/mm3 (0.00-0.031); Immature Granulocyte Percent A 0.5 % (0-0.5); Lymphocytes Absolute Auto 2.09 K/mm3 (0.9-3.2); Lymphocytes Percent Auto 21.9 % (18.3-44.2); Mean Corpuscular HGB Conc 35.6 g/dl (32-36); Mean Corpuscular Volume 89.8 fl (80-100); Monocytes Absolute Auto 0.6 K/mm3 (0.1-0.6); Monocytes Percent Auto 5.8 % (2.6-8.5); Neutrophils Absolute Auto 6.8 K/mm3 (1.3-6.7); Neutrophils Percent Auto 70.7 % (45.5-73.1); Platelet Count Result 210 k/mm3 (150-375); Red Blood Count 4.13 M/mm3 (4.2-5.4); Red Cell Distribution Width 14.5 % (11.5-14.5); White Blood Count 9.6 K/mm3 (4.5-10.0)
--- NOTE | 2023-10-15 05:39 | LDADM ---
This patient, Vanesa Preciado, was admitted to Labor/Delivery/Recovery 106 on 10/15/23 at 04:55. Plans for labor, pain management and were discussed with patient. Patient/family oriented to hospital policies and general routines including ID bracelet, bed and alarms, visiting hours, pain management, procedures, bathroom and other care routines, personal items, smoking policy, room service/diet and guest tray routines, security routines, and visiting hours. Patient/Family are encouraged to report perceived risks to care and to ask questions if they do not understand what they are told or what they should do. See OBIX for further documentation.
[2023-10-15] MEDS: OXYTOCIN 30 UNITS/NS 500 ML 30 UNITS/500 ML BAG IV CONT (05:42)
[2023-10-15] MEDS: LACTATED RINGERS 1,000 ML 125 ML IV CONT ×6 (05:42→21:52)
[2023-10-15 06:26] LABS: HIV 1/2 Ab P24 Ag Result Negative (Negative)
--- NOTE | 2023-10-15 06:49 | WPDANESEPP ---
Anes - Eval Pre Procedure Procedure: labor epidural Date/Time: 10/15/23 06:49 Surgeon: edwar Preop Diagnosis: pain during labor Pre Op Diagnosis: IOL Patient Data Age: 28 Gender: F Height: 1.6 m Weight: 97 kg Last Vital Signs Temp 36.6 C 10/15/23 06:16 Pulse 70 10/15/23 06:30 BP 122/69 10/15/23 06:30 Pulse Ox 98 10/15/23 06:46 Allergies Allergy/AdvReac Type Severity Reaction Status Date / Time No Known Allergies Allergy Verified 04/02/23 18:16 Home Medications Medication Instructions Recorded Confirmed Type lorazepam 0.5 mg tablet 0.5 mg PO BID 04/02/23 04/02/23 History amoxicillin 875 mg-potassium 1 tablet PO Q12H #10 tabs 04/03/23 Rx clavulanate 125 mg tablet hydrocodone 5 mg-acetaminophen 325 1 tablet PO Q6H PRN Pain Rated 4-6 04/03/23 Rx mg tablet #4 tabs Laboratory Tests 10/15/23 05:23 WBC 9.6 K/mm3 (4.5-10.0) RBC 4.13 L M/mm3 (4.2-5.4) Hgb 13.2 g/dL (12.0-15.0) Hct 37.1 % (37.0-47.0) MCV 89.8 fl (80-100) MCH 32.0 pg (26-34) MCHC 35.6 g/dl (32-36) RDW 14.5 % (11.5-14.5) Plt Count 210 k/mm3 (150-375) MPV 12.0 H fl (7.4-10.4) Immature Gran % (Auto) 0.5 % (0-0.5) Neut % (Auto) 70.7 % (45.5-73.1) Lymph % (Auto) 21.9 % (18.3-44.2) [place] % (Auto) 5.8 % (2.6-8.5) Eos % (Auto) 1.0 % (0-4.4) Baso % (Auto) 0.1 L % (0.2-1.2) Lymph # (Auto) 2.09 K/mm3 (0.9-3.2) [place] # (Auto) 0.6 K/mm3 (0.1-0.6) Eos # (Auto) 0.1 K/mm3 (0-0.3) Baso # (Auto) 0.0 K/mm3 (0.0-0.1) Abs Immat Gran (auto) 0.05 H K/mm3 (0.00-0.031) Absolute Neuts (auto) 6.8 H K/mm3 (1.3-6.7) Absolute Nucleated RBC 0.000 K/mm3 (0.0-0.012) Nucleated RBC % 0.0 % (0.0-0.2) RPR Pending HIV 1&2 Ab/P24 Ag 4thGn Negative (Negative) Blood Type A Positive Antibody Screen Negative Patient hx anesthesia problems: none Family hx anesthesia problems: none Results Review: All pre-operative results and documents have been reviewed as part of the pre-operative evaluation. [facility] Past Medical History Medical History (Updated 10/15/23 @ 06:50 by June Green CRNA) Anxiety Atypical chest pain BMI 32.0-32.9,adult BMI 34.0-34.9,adult COVID-19 Encounter to establish care IUP (intrauterine ), incidental Major depression Obesity (BMI 30-39.9) Sinus tachycardia Tobacco abuse Surgical History Surgical History History of tonsillectomy (~2009) Family History Family History Mother Diabetes mellitus Depression Anxiety Social History Social History Smoking packs per day: 0.5 Smoking cigarettes per day: 10.0 Years smoked: 15 Smoking pack-years: 7.50 Smoking status: Current every day smoker Tobacco type: cigarettes Second hand tobacco smoke exposure: Yes Alcohol intake: never Alcohol use details: Occasionally Substance use: never Substance use type: does not use Do You Feel Safe in your Home?: Yes Lack of Transportation: No Lack of Food: Never True Current Housing: I Have Housing Concerned About Future Housing: No Difficulty Paying Gas/Electric Bills: No Difficulty Paying for Meds: No Currently Unemployed: No Education: Grade School Difficulty w/ Childcare or Family Care: No Spiritual care concerns: No Exam Day of Procedure 10/15/23 06:49
--- NOTE | 2023-10-15 07:12 | WPDHPUPDATE1 ---
History and Physical Update Update Date/Time: 10/15/23 07:12 28-year-old multiparous female at 39 weeks gestation presents for elective induction of artificial rupture of membranes was performed. Clear fluid. 3 cm / 50%/ -2. Reassuring heart tones. Pitocin, epidural, expectant management. History and Physical has been reviewed, including an updated exam of the patient. There are NO changes in the patient's condition. Risks, benefits, and alternatives have been discussed and questions answered. Patient agrees to proceed with procedure.
[2023-10-15] MEDS: fentaNYL CITRATE INJ (*CRX) 100 MCG/2 ML VIAL 50 MCG IV PUSH (09:37)
[2023-10-15] MEDS: fentaNYL CITRATE INJ (*CRX) 100 MCG/2 ML VIAL IV PUSH ×2 (10:53→15:15)
[2023-10-15] MEDS: SODIUM CHLORIDE 0.9% IV 300 ML 600 ML I-UTERINE ×2 (20:18→21:51)
--- NOTE | 2023-10-15 23:03 | PM.OBPRVD ---
OB - Vaginal Delivery Note Procedure Delivery date: 10/15/23 Induction method: AROM and Per Pitocin Protocol Delivery monitor: External FHT and Internal Uterine Route of delivery: Episiotomy description: None Laceration Description: Perineal - 1st Degree Delivery repair: vicryl Quantitative Blood Loss (ml): 350 Anesthesia type: Epidural Complications: No immediate complications [place] Baby Date of : 10/15/23 Time of : 22:53 Weeks of gestation at delivery: 39 Weight (pounds): 7 Weight (ounces): 11 score one minute: 8 score five minutes: 9
[2023-10-15] MEDS: OXYTOCIN 30 UNITS/NS 500 ML 30 UNITS/500 ML BAG 999 UNITS IV CONT (23:10)
[2023-10-15] MEDS: OXYTOCIN 30 UNITS/NS 500 ML 30 UNITS/500 ML BAG 125 UNITS IV CONT (23:23)
[2023-10-15] MEDS: COSYNTROPIN 0.25 MG/ML VIAL 1 MG IV PUSH (23:50)
[2023-10-16] VITALS (19 sets, daily range): BP systolic 100–141; BP diastolic 54–76; PULSE 68–116; RESP 16–18; TEMP 36.2–37.1; O2SAT 99–100
[2023-10-16] MEDS: ACETAMINOPHEN 325 MG TABLET 650 MG PO (01:59)
[2023-10-16] MEDS: IBUPROFEN 600 MG TABLET PO (01:59)
[2023-10-16] MEDS: HYDROcodone/acetaminophen (*CRX) 10-325 MG TABLET 1 TAB (02:26)
[2023-10-16] MEDS: HYDROcodone/acetaminophen (*CRX) 10-325 MG TABLET 1 TAB PO ×4 (02:26→15:13)
--- NOTE | 2023-10-16 02:26 | PC.NURSE ---
Override in Pyxis for Roll 10/326mg tab. Pt rating pain 8/10 at epidural site.
[2023-10-16 07:39] LABS: Hematocrit 35.5 % (37.0-47.0); Hemoglobin 12.6 g/dL (12.0-15.0)
--- NOTE | 2023-10-16 07:52 | PM.OBPNVD ---
OB - PN: Subj Subjective Date/time seen: 10/16/23 07:52 Interval history: pp day 1 no complaints baby doing well OB - PN: Obj Data Labs 10/16/23 07:34 Labs: Laboratory Results - last 24 hr 10/16/23 07:34 Hgb 12.6 Hct 35.5 L OB - PN A/P Plan day: 1 Time Spent With Patient Time: Total time spent is greater than 50% in coordination of care (as documented) at patient's floor/unit and/or counseling patient: Review of Systems Review of Systems: All systems reviewed & are unremarkable except as noted in HPI and below Exam Const: General: cooperative and healthy appearing Cardio: Rate: regular rate Rhythm: regular rhythm Skin: General skin exam: normal color Extrem: General: normal to inspection Psych: Appearance: grossly normal
[2023-10-16 11:37] LABS: Rapid Plasma Reagin Non-Reactive (NonReactive)
--- NOTE | 2023-10-16 12:59 | P.PNAN_ITS ---
Anes-Prog Note L&D Date/Time: 10/16/23 12:59 Comfortable throughout: labor and delivery Neuraxial method: epidural Epidural/Spinal procedure site: tender Neuro status: Neuro function grossly intact. Cardiovascular status: normal Respiratory status: normal Airway patency: baseline Mental status: baseline Post-Op hydration status: normal Vital Signs: Last Vital Signs Temp 36.2 C L 10/16/23 08:00 Pulse 69 10/16/23 08:00 Resp 16 10/16/23 08:00 BP 128/61 10/16/23 08:00 Pulse Ox 100 10/16/23 08:00 O2 Del Method Room Air 10/16/23 08:00 Pain score (VAS): 310 I/O: Intake & Output 10/15/23 10/16/23 10/16/23 23:59 07:59 15:59 Intake Total 743.8 100 Output Total 1500 700 Balance 743.8 -1400 -700 Post-procedural complaints: none Patient feedback: Patient satisfied with anesthetic care. patient comfortable once epidural catheter replaced around 2100. first catheter appeared to be intrathecal. patient was given cosyntropin over night. she was up in chair this morning with no headache and high spirited. cloth mercerizer back tender.
[2023-10-16] MEDS: HYDROcodone/acetaminophen (*CRX) 5-325 MG TABLET 1 TAB PO (20:15)
[2023-10-17] MEDS: HYDROcodone/acetaminophen (*CRX) 5-325 MG TABLET 1 TAB PO ×3 (00:14→14:44)
--- NOTE | 2023-10-17 07:57 | PM.OBPNVD ---
OB - PN: Subj Subjective Date/time seen: 10/17/23 07:57 Interval history: pp day 2 no complaints baby doing well OB - PN: Obj Data Labs 10/16/23 07:34 Labs: Laboratory Results - last 24 hr 10/15/23 05:23 RPR Non-reactive OB - PN A/P Plan day: 2 Plan: routine care and discharge home Time Spent With Patient Time: Total time spent is greater than 50% in coordination of care (as documented) at patient's floor/unit and/or counseling patient: Review of Systems Review of Systems: All systems reviewed & are unremarkable except as noted in HPI and below Exam Const: General: cooperative and healthy appearing Chest: Chest palpation & inspection: normal inspection of the chest Resp: Effort & Inspection: normal respiratory effort Cardio: Rate: regular rate Skin: General skin exam: normal color Neuro: General: patient oriented x3 Extrem: Right lower extremity: normal to inspection Left lower extremity: normal to inspection
--- NOTE | 2023-10-17 07:59 | PM.OBDSVD ---
DS: Admitting Diagnosis Discharge Date 10/17/23 Admitting Diagnosis IOL DS: Discharge Diagnosis Discharge Diagnosis (1) Vaginal delivery: Code(s): O80 - Encounter for full-term uncomplicated delivery Status: Acute OB - DS: Summary OB Procedures : None OB Procedures Intrapartum: Spontaneous Vag Delivery OB Procedures: : None Peripartum Data Laceration Description: Perineal - 1st Degree Episiotomy description: None Time Spent with Patient Time attestation: Total time spent providing and/or coordinating discharge services: DS: Data Data Completed and Pending Labs on day of discharge: Labs from last 24 hours 10/15/23 05:23 RPR Non-reactive Discharge Plan Discharge Attending physician on discharge: Jim Samuel Discharging Clinician: Mami Boo Patient Disposition: Home, Self-Care Activity: pelvic rest Diet: regular Patient Instructions: Antibiotic Form Stand Alone Forms: General Discharge Information Follow-up/Referrals: Jim Samuel MD [Physician] - 4 Weeks Discharge Medications: Continued lorazepam 0.5 mg tablet 0.5 mg PO BID hydrocodone-acetaminophen 5-325 mg Tablet 1 tablet PO Q6H PRN (Reason: Pain Rated 4-6) Qty: 4 0RF amoxicillin-pot clavulanate 875-125 mg tablet 1 tablet PO Q12H Qty: 10 0RF Date of admission: 10/15/23 04:55 Primary Care Provider: Jess Villalpando Admitting Provider: Jim Samuel Attending physician on admission: Jim Samuel Condition: Stable
[2023-10-17 08:00] VITALS: PULSE 64; RESP 18; O2SAT 100
[2023-10-17] MEDS: IBUPROFEN 600 MG TABLET PO (08:15)
[2023-10-17 08:20] VITALS: BP 114/66; PULSE 64; RESP 18; TEMP 36.4; O2SAT 100
[2023-10-20 11:26] VITALS: BP 130/71; PULSE 77; RESP 18; TEMP 36.6; O2SAT 100
== END 2023-10-17 14:50 | disposition home or self-care (01) | DRG 560 ==
LOC: ANHLDR 04:59 → ANHOB2 10-16 01:52
PROVIDERS: Admitting Provider Obstetrics & Gynecology; PCP Nurse Practitioner Family; Visit Provider Obstetrics & Gynecology
DX: O69.81X0 Labor and delivery complicated by cord around neck, without compression, not applicable or unspecified (principal); O70.0 First degree perineal laceration during delivery; Z3A.39 39 weeks gestation of pregnancy; Z37.0 Single live birth
CPT/HCPCS: 36415; 85014; 85018; 85025; 86592; 86703; 86850; 86900; 86901; A9270; G0432; J0834; J2590; J2795; J3010; J7030; J7120

== ENCOUNTER 2024-09-14 16:22 | Outpatient (CLI) | payer OTHER, SELFPAY ==
--- OUTSIDE RECORDS SUMMARY | 2024-09-14 16:26 | XMS_ITS ---
Author Organization [facility]ly [facility] Address [address] [place] [address] Care Team Providers Care Sandfill Operator Surface Name Role Phone Peyton Morgan Primary Care Provider Fabiana Bailey Unavailable [phone] REASON FOR VISIT MATNP; DOC: Alcohol; Last Use: 12/27; ANTABUSE; used to be pt. Encounters Encounter Location Date Provider Diagnosis [address] [place] [address] 01/02/2024 Fabiana Bailey Plan Of Treatment No Information Progress Notes * Jun BARRYOB:[birth year] (28 yo F)Acc No.[id number]:01/02/2024 UNLOCKED PROGRESS NOTE Patient: Vanesa TOVAR Provider: Etta Bailey MSN, IRIDOLOGIST, SILK TOP HAT BODY MAKER-C :1995 A ge:28 Y S ex:Female Date:01/02/2024 Address:[facility] [address], [place], [place] Pcp:Peyton Morgan Subjective: * Chief Complaints: * 1 . MATNP; DOC: Alcohol; Last Use: 12/27; ANTABUSE; used to be pt.. * Medical History: Objective: * Vitals: Assessment: Plan: * Treatment: * * Electronic signature of Charline Bailey APRN, [id number] on 09/14/2024 at 04:26 PM CDT Sign off status: Pending * Provider: Etta Bailey, MSN, IRIDOLOGIST, SILK TOP HAT BODY MAKER-C Date: 0 01/02/2024 Generated for Casey khan/Lurdes/Keiraitting on: 0 09/14/2024 04:26 PM CDT
--- OUTSIDE RECORDS SUMMARY | 2024-09-14 16:26 | XMS_ITS | Patient Health Record ---
Author Organization [facility] Address [address] [place] [address] Care Team Providers Care Certified Alcohol Drug Counselor Name Role Phone Peyton Morgan Primary Care Provider [phone] LynnFabiana Unavailable [phone] Allergies No Known Allergies Results Component Value Reference Range Notes 12 Panel Urine Drug Screen Reviewed date:01/07/2024 03:22:55 PM Interpretation: Performing Lab: Notes/Report: THC neg JOSE ARMANDO neg MOP (OPI) neg AMP neg MET neg BAR neg BZO pos MDMA neg MTD neg OXY neg PCP neg BUP neg Reason For Referral No Information Medications Medication SIG (Take, Route, Frequency, Duration) Notes Start Date End Date Status Vivitrol 380 MG as directed Intramus cular every 28 days for 28 days 01/07/2024 Active Naltrexone HCl 50 MG 1/2 tablet Orally O nce for 1 days 01/07/2024 Active Propranolol HCl 10 MG 1 tablet Orally Tw ice a day prn anxiety for 30 day(s) 09/27/2021 Active PARoxetine HCl 20 MG 0.5 tablet daily at bedtime x 7 days, then increase to 1 tablet nightly Orally Once a day for 30 day(s) 09/27/2021 Active hydrOXYzine HCl Not- Taking Venlafaxine HCl ER 37.5 MG 1 tablet with food Orally Once a day for 7 days Active LORazepam 1 MG one tablet as needed Orally Once a day Active Social History Tobacco Use: Social History Observation Description Date Details (start date - stop date) Current Smoker NA - NA Dont use, Tobacco Use/Smoking Question Answer Notes Are you a current every day smoker Tobacco Control (Standard) Question Answer Notes Tobacco use: Current every day smoker Additional Findings: Tobacco user Moderate cigar ette smoker (10-19 cigs/day) Problems Problem Type SNOMED Code ICD Code Onset Dates Problem Status W/U Status Risk Notes Problem Social anxiety disorder (26115531) Social anxiety disorder (F40.10) Active confirmed Problem Alcohol use disorder (6979336513) Alcohol use disorder (F10.99) Active confirmed Problem Obesity (106096758) Obesity (BMI 30-39.9) (E66.9) Active confirmed Problem Fatigue (19178337) Fatigue, unspecified type (R53.83) Active confirmed Problem Anxiety depression (317531269) Anxiety with depression (F41.8) Active confirmed Problem Tobacco use (588144481) Tobacco use disorder (F17.200) Active confirmed Vital Signs Heart Rate 74 /min 01/07/2024 Respiratory Rate 16 /min 01/07/2024 Blood pressure diastolic 90 mm Hg 01/07/2024 Oximetry 99 % 01/07/2024 Height 63.00 in 01/07/2024 Blood pressure systolic 130 mm Hg 01/07/2024 Weight 185.00 lbs 01/07/2024 BMI 32.77 kg/m2 01/07/2024 Encounters Encounter Location Date Provider Diagnosis [place] [place] [address] 01/07/2024 Fabiana Bailey Alcohol use disorder F10.99 ; Obesity (BMI 30-39.9) E66.9 and Tobacco use disorder F17.200 Assessments Encounter Date Diagnosis (ICD Code) Assessment Notes Treatment Notes Treatment Clinical Notes Section Notes 01/07/2024 Alcohol use disorder (ICD-10 - F10.99) 01/07/2024 Obesity (BMI 30-39.9) (ICD-10 - E66.9) 01/07/2024 Tobacco use disorder (ICD-10 - F17.200) 01/07/2024 Other 01/07/24 09:30 AM, Gavin Brown RN > Per Levy Bailey APRN's orders, supervised as pt. self-administered Naltrexone 25mg po. Instructed pt. on Naltrexone and Vivitrol per [employer] module handout. Instructed pt. on adverse side effects to report and common side effects. Gave pt. Vivitrol ID bracelet, necklace, and wallet card and explained what/why it is used. Pt. verbalized understanding of all of the above. Will monitor. 01/07/24 09:45 am, Gavin Brown RN > Pt. denies any adverse side effects from the Naltrexone at this time. Will continue to monitor. 01/07/24 1000 am, Gavin Brown RN> Pt. continues to deny any adverse side effects to the Naltrexone at this time. Reported this to Levy Bailey APRN. Per orders, okay to administer IM Vivitrol. 01/07/24 10:18 am, Gavin Brown RN> Administered Vivitrol 380mg IM into Lt. gluteus. Pt. tolerated well. No questions/concerns at this time. Pt. given a reminder with walk-in clinic hours, phone numbers, and when pt.'s next Vivitrol is due. Pt. verbalized understanding. 01/07/24 10:32 am, Gavin Brown > Pt. denies any adverse side effects from Vivitrol injection given. Per Levy Bailey APRN pt. discharged to home. Plan Of Treatment No Information Insurance Providers Payer Name Payer Address Payer Phone Subscriber Number Group Number Insured Name Patient Relationship to Insured Coverage Start Date Coverage End Date [facility] Attn Claims Department [address] [place] [address] [phone] [id number] Vanesa Preciado Self - patient is the insured 1 [facility] Attn Claims Department [address] [place] [address] [phone] [id number] Vanesa Preciado Self - patient is the insured 1 Medications Administered Medication Instructions Date of Administration Dosage Notes Vivitrol 01/07/2024 380 mg Carol Brown 01/07/2024 10:18 AM CDT >Given Lt Gluteus, tolerated well. Medical (General) History Medical History History ICD Code ANXIETY PANIC ATTACKS Surgical History Surgery Date(Month/Year)
--- OUTSIDE RECORDS SUMMARY | 2024-09-14 16:26 | XMS_ITS ---
Author Organization [facility] Address [address] [place] [address] Care Team Providers Care Image Editor Name Role Phone Peyton Morgan Primary Care Provider [phone] Fabiana Bailey Unavailable [phone] REASON FOR VISIT 1 month MAT Vivitrol Encounters Encounter Location Date Provider Diagnosis [address] [place] [address] 02/04/2024 Fabiana Bailey Plan Of Treatment No Information Progress Notes * Jun BARRYOB:[birth year] (28 yo F)Acc No.[id number]:02/04/2024 UNLOCKED PROGRESS NOTE Patient: Vanesa TOVAR Provider: Etta Bailey MSN, ENGINEER GEOPHYSICAL LABORATORY, GERIATRIC NURSING ASSISTANT-C :1995 A ge:28 Y S ex:Female Date:02/04/2024 Address:[facility] [address], [place], [place] Pcp:Peyton Morgan Subjective: * Chief Complaints: * 1 . 1 month MAT Vivitrol. * Medical History: Objective: * Vitals: Assessment: Plan: * Treatment: * Care Plan Details* * Electronic signature of Charline Bailey APRN, [id number] on 09/14/2024 at 04:26 PM CDT Sign off status: Pending * Provider: Etta Bailey, MSN, ENGINEER GEOPHYSICAL LABORATORY, GERIATRIC NURSING ASSISTANT-C Date: 1 Generated for Dominicki erin/Faxing/eTransmitting on: 0 09/14/2024 04:26 PM CDT
--- OUTSIDE RECORDS SUMMARY | 2024-09-14 16:26 | XMS_ITS | Clinical Summary ---
Author Organization [facility] Address [address] [place] [address] Care Team Providers Care Sales And Service Consultant Name Role Phone Unavailable Primary Care Provider Unavailabl e Source Comments [facility],non-owned Affiliates and Associated Physician Practices is amultiple site organization consisting of ambulatory clinics and hospital sitesin [place], [place], [place]. This disclosure is being madepursuant to the Care Everywhere program and may not contain all information available regarding this patient. Last updated 18.[facility] [place] Allergies No known active allergies Medications * Be aware that medications may not be up to date on this document. Alwaysverify current medications with the patient. LORazepam (Ativan) 0.5 MG tablet Take 1 (one) tablet by mouth 2 times daily after meals Active Active Problems No known active problems Social History Tobacco Use Types Packs/Day Years Used Date Smoking Tobacco: Every Day Cigarettes 0.1 10 Smokeless Tobacco: Never Alcohol Use Standard Drinks/Week Comments Not Currently 0 (1 standard drink = 0.6 oz pur e alcohol) Pinson Depression Scale Answer Date Recorded Pinson Depression Scale Total 3 04/09/2023 The thought of harming myself has occurred to me . 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 Not on file Not on file Not on file Last Filed Vital Signs Vital Sign Reading Time Taken Comments Blood Pressure 112/74 04/09/2023 1:59 PM RURAL ELECTRIFICATION ENGINEER Pulse 82 04/09/2023 1:59 PM RURAL ELECTRIFICATION ENGINEER Temperature - - Respiratory Rate - - Oxygen Saturation - - Inhaled Oxygen Concentration - - Weight 93.1 kg (205 lb 3.2 oz) 04/09/2023 1:59 P M RURAL ELECTRIFICATION ENGINEER Height 162.6 cm (5' 4 ) 04/09/2023 1:59 PM RURAL ELECTRIFICATION ENGINEER Body Mass Index 35.22 04/09/2023 1:59 PM RURAL ELECTRIFICATION ENGINEER Plan of Treatment Health Maintenance Due Date Last Done Comments PAP SMEAR 1995 HEPATITIS C SCREENING 09/27/2011 DTAP/TDAP/TD VACCINES (1 - Tdap) 2012 HEPATITIS B VACCINE (1 of 3 - 19+ 3-dose series) 2012 PNEUMOCOCCAL VACCINE (1 of 2 - PCV) 2012 COVID-19 VACCINE (1 - 2023-2 5 season) 2023 DEPRESSION SCREENING 04/28/2024 INFLUENZA VACCINE (Season Ended) 2024 ZOSTER VACCINE (1 of 2) 10/02/2043 HIV SCREENING Completed 03/24/2023 HIB VACCINE Aged Out No longer eligi ble based on patient's age to complete this topic HPV VACCINE Aged Out No longer eligi ble based on patient's age to complete this topic MENINGOCOCCAL (Group B) VACC INE SHARED DECISION-MAKING Aged Out No longer eligibl e based on patient's age to complete this topic MENINGOCOCCAL GROUPS A/C/Y/W VACCINE Aged Out No longer eligible b ased on patient's age to complete this topic Insurance [id number] [id number]
--- OUTSIDE RECORDS SUMMARY | 2024-09-14 16:27 | XMS_ITS | Continuity of Care Document ---
Author Organization [facility] Address [address] [place] [address] [place] [address] Phone Care Team Providers Care Molasses And Caramel Operator Name Role Phone Latham OD, Nitish Unavailable Unavailable Procedures Procedure Date Eye Exam, New Patient Refraction Advance Directives Directive Yes / No Effective Date File Name No Information Encounters Encounter Description Practice Location Reason(s) For Visit Diagnoses Date Provider Providers Copied on Encounter [facility], [address], [place], [place], [id number], [place] tel:[phone] SEC [facility] [place] No Information [phone] Latham OD Nitish. [address] [facility] [address] [facility] [place] , [address], [place], [address], [place]. tel:[phone] Family History Family Member Type Diagnosis Age At Onset No Information Payers Payer name Insurance type Covered green party ID Authoriza tion(s) Medicaid [facility] [id number] Social History Type Description Quantity Date Captured [...]
--- OUTSIDE RECORDS SUMMARY | 2024-09-14 16:27 | XMS_ITS | CONTINUITY OF CARE DOCUMENT ---
Author Name li jefferson Address Unknown Organization [facility] Address [address] [place] [address] [address] [place] [address] Phone [phone] Care Team Providers Care Linotype Worker Name Role Phone Viviane DAILEY, Anand Unavailable [phone] LEBRON WOODY MD Unavailable [phone] LEBRON WOODY MD Unavailable PROBLEMS Condition Status Date Provider Notes Cardiology examination active Anand Pan MD Palpitations active Anand Pan MD Snoring active Anand Pan MD Personal history of COVID-19 active Anand norris MD Inappropriate sinus tachycardia active Kit Pan MD ENCOUNTERS Date Type Provider Location Encounter Diag nosis - In-person encounter Office Visit Anand Pan MD [facility] - In-person encounter Office Visit Anand Pan MD [facility] Inappropriate sinus tachycardia - In-person encounter Office Visit Anand Pan MD [facility] Cardiology examinationPalpitationsSnoringPersonal history of COVID-19 VITAL SIGNS Date Observation Value Provider weight E&M 180 [lb_av] Torito coyle Body Mass Index (Ratio) 33.47 kg/m2 Kit Pan MD blood pressure, cuff size large Ke danyell Michaels blood pressure, diastolic 87 mm[Hg] Tello child [facility] blood pressure, systolic 117 mm[Hg] Kenny [facility] oxygen saturation, oximetry 99 % Shannan [facility] respiratory rate E&M 14 /min [facility] pulse rate 60 /min Shannan Musa [facility] weight E&M 183 [lb_av] Shannan Musa [facility] height E&M 62 [in_i] Shannan Musa [facility] Body Mass Index (Ratio) 34.56 kg/m2 Kit Pan MD blood pressure, cuff size regular Daisy mariana Mccartney blood pressure, diastolic 78 mm[Hg] Daisy peña Bib blood pressure, systolic 120 mm[Hg] [facility] isaac Mccartney oxygen saturation, oximetry 99 % Chary Mccartney pulse rate 89 /min Chary golden respiratory rate E&M 16 /min Jerrica Mccartney weight E&M 189 [lb_av] Chary golden height E&M 62 [in_i] Chary golden Body Mass Index (Ratio) 37.49 kg/m2 Kit Pan MD blood pressure, diastolic 77 mm[Hg] Li nkLogic blood pressure, systolic 114 mm[Hg] Niru kLogic blood pressure, diastolic 77 mm[Hg] Sa ra Abel blood pressure, systolic 114 mm[Hg] Carmenza a Abel oxygen saturation, oximetry 98 % Zahra Abel respiratory rate E&M 22 /min Zahra Si ms pulse rate 72 /min Zahra Abel weight E&M 205 [lb_av] Zahra Abel height E&M 62 [in_i] Zahra Abel blood pressure, cuff size regular Sa ra Abel ALLERGIES No Known Drug Allergies HISTORY OF MEDICATION USE Medication Status Instructions Dates Provider Indications Com ments diltiazem HCl 120 mg capsule,extended release 24hr active Take 1 capsule by mouth once a day Isatu Matthews NP ergocalciferol (vitamin D2) 1,250 mcg (50,000 unit) capsule active Isatu Matthews NP metoprolol tartrate 25 mg tablet completed 1/2 tablet twice a day - Isatu Matthews CHILD PROTECTION SPECIALIST lorazepam 1 mg tablet active Take 1 tablet by mouth once a day Zahra Abel SOCIAL HISTORY Date Observation Value Provider smoking history, tot al pack/day 1/2 Shannan Michaels cigarette use yes Shannan richard smoking status Current every day smoker K kervindell Brando social history E&M Marital Statu s: Single C hildren: 1 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 Anand Pan MD Surgical History of - Tonsillectomy Surgical History of - Tonsillectomy Anand Pan MD smoking history, tot al pack/day 1/2 Zahra Abel cigarette use yes Zahra Abel smoking status Current every day smoker S leonardo Abel FAMILY HISTORY Family Member Condition First Degree Blood Relative No Known Fam lucie History INSURANCE PROVIDERS Payer name Policy type / Coverage type Onelia red democrat ID [employer] MEDICAID (2) Medicaid [id number] ADVANCE DIRECTIVES Name Date DISCUSSED - NO DECISION MADE TREATMENT PLAN Date Name Performer [id number],C,W as started on metoprolol without improvement in symptoms. Discontinue metoprolol and trial diltiazem 120mg C ontinues to have chest heaviness, will check routine stress. Isatu Matthews CHILD PROTECTION SPECIALIST [id number],S, Anand wallace MD [id number],S, Anand wallace MD [id number],S, Anand wallace MD [id number],N,Trial low dos e BB. Anand Pan MD [id number],S, Anand wallace MD [id number],N,Home sleep st udy Anand Pan MD [id number],N, Anand wallace MD Cardiology-seen with CHILD PROTECTION SPECIALIST:Was started on metoprolol without improvement in symptoms. Discontinue metoprolol and trial diltiazem 120mg C ontinues to have chest heaviness, will check routine stress. Isatu Matthews CHILD PROTECTION SPECIALIST Cardiology Anand Pan MD Cardiology Anand Pan MD Cardiology Anand Pan MD Cardiology:Trial low dose BB. Ra tamar Pan MD Cardiology Anand Pan MD Cardiology:Home sleep study Kit Pan MD Cardiology Anand Pan MD Date Name Stress Routine Monitor - Telemetry (Mobile Cardiac) Sleep Study Home Complete Echo HISTORY OF PROCEDURES Procedure Date Procedure Name Provider Procedure Notes S tatus EKG Anand Pan MD complete d
--- OUTSIDE RECORDS SUMMARY | 2024-09-14 16:27 | XMS_ITS | Data Portability ---
Author Organization [facility] [place] Address [address] [place] [place] [address] [address] Assessment Encounter Date Assessment Date Assessment LastModified by Organization Details LastModified Time 10/06/2023 10/06/2023 Patient is ___weeks . Discussed plan. [email or web address] Not available 10/06/2023 17:34:29 10/13/2023 10/13/2023 Patient is ___weeks . Discussed plan. [email or web address] Not available 10/13/2023 10:15:21 Plan of Treatment Reminders Order Date Submit Date Provider Last Modified By Organization Details Last Modified Time Details Appointments None recorded. Lab urinalysis, dipstick [address] [place], [place] [id number] [address], [address], [place], [address], 12:10:06 Referral None recorded. Procedures None recorded. Surgeries None recorded. Imaging None recorded. Medication Orders ciprofloxac in 250 mg tablet 2023 024 [facility] #[id number], [address], [place], [address], 4 12:36:36 Cipro 500 mg tablet 2023 024 [facility] #[id number], [address], [place], [address], 4 17:11:28 Patient TargetsNo targets recorded. Patient InstructionsNo instructions recorded. Reason for Referral None Reported. Results Created Date Observation Date Name Description Value Unit Range Abnormal Flag Note LastModifiedBy Organization Detail LastModifiedTime 09/10/19 24 09/10/2023 CBC (HEMO GRAM) WBC 11.8 10'3/ uL 3.5-10 .5 high Not Available [facility] (Lab) [address], [place], [address], 09/11/2023 07:12:46 09/10/19 24 09/10/2023 CBC (HEMO GRAM) RBC 4.47 10'6/ uL (based on docume nted legal sex) 3.80-5 .20 Not Available [facility] (Lab) [address], [place], [address], 09/11/2023 07:12:46 09/10/19 24 09/10/2023 CBC (HEMO GRAM) HGB 13.9 g/dL (based on docume nted legal sex) 11.6-1 5.4 Not Available [facility] (Lab) [address], [place], [address], 09/11/2023 07:12:46 09/10/19 24 09/10/2023 CBC (HEMO GRAM) HCT 41.2 % (based on docume nted legal sex) 34.0-4 5.0 Not Available [facility] (Lab) [address] [place], [address], 09/11/2023 07:12:46 09/10/19 24 09/10/2023 CBC (HEMO GRAM) MCV 92.2 fL 80.0-9 9.0 Not Available [facility] (Lab) [address] [place], [address], 09/11/2023 07:12:46 09/10/19 24 09/10/2023 CBC (HEMO GRAM) MCH 31.1 pg 27.0-3 4.0 Not Available [facility] (Lab) [address] [facility] [place], [address], 09/11/2023 07:12:46 09/10/19 24 09/10/2023 CBC (HEMO GRAM) MCHC 33.7 g/dL 32.0-3 5.5 Not Available [facility] (Lab) [address] [facility], [place], [address], 09/11/2023 07:12:46 09/10/19 24 09/10/2023 CBC (HEMO GRAM) RDW 14.2 % 11.0-1 5.0 Not Available [facility] (Lab) [address] [facility], [place], [address], 09/11/2023 07:12:46 09/10/19 24 09/10/2023 CBC (HEMO GRAM) plt 260 10'3/ uL 150-40 0 Not Available [facility] (Lab) [address] [facility], [place], [address], 09/11/2023 07:12:46 09/10/19 24 09/10/2023 CBC (HEMO GRAM) MPV 12.5 fL 8.8-12 .1 high Not Available [facility] (Lab) [address] [facility], [place], [address], 09/11/2023 07:12:46 09/10/19 24 09/10/2023 CBC (HEMO GRAM) NRBC's 0.0 % 0.0 Not Available [facility] (Lab) [address] [facility], [place], [address], 09/11/2023 07:12:46 09/10/19 24 09/10/2023 CBC (HEMO GRAM) absolute NRBCs 0.0 10'3/ uL no refere nce range establ ished 2023 6:08 AM: P indic ates parti al resul ts on a panel have been relea sed. Addit ional resul ts will follo w. 2023 6:08 AM: This resul t has been final verif ied. No addit ional or tiwari ed resul ts are expec solomon. Not Available [facility] (Lab) [address] [facility], [place], [address], 09/11/2023 07:12:46 09/10/19 24 09/10/2023 CULTU RE: URINE result report SEE RESULT S BELOW Test: Cultu re: Urine Speci men Sourc e: Urine - Clean Catch Speci men Type: Urine Speci men Date: 2023 5:38 PM Resul t Date: 2023 7:19 AM Resul t Statu s: Final resul t Abnor mal: No Resul ting Lab: [facility] [address] [facility] [address] [facility] [address] [facility] [address] Tel: [phone] CULTU RE ----- ----- ----- --- Cultu re resul t (>=3 organ isms prese nt) indic ates possi ble conta minat ion. Repea t cultu re if sympt oms indic ate. Not Available [facility] (Lab) [address] [facility], [place], [address], 09/12/2023 08:24:05 09/25/19 24 09/25/2023 CT/GC AND TRICH OMONA S VAGIN CED (RRNA ), URINE chlamydia trachomatis, PCR Negati ve negati ve Not Available [facility] (Lab) [address] [facility], [place], [address], 09/28/2023 15:23:49 09/25/19 24 09/25/2023 CT/GC AND TRICH OMONA S VAGIN CED (RRNA ), URINE neisseria gonorrhoeae, PCR Negati ve negati ve Not Available [facility] (Lab) [address] [facility], [place], [address], 09/28/2023 15:23:49 09/25/19 24 09/25/2023 CT/GC AND TRICH OMONA S VAGIN CED (RRNA ), URINE trichomonas vaginalis ribosomal RNA (rrna) Negati ve negati ve Not Available [facility] (Lab) [address] [facility], [place], [address], 09/28/2023 15:23:49 09/25/19 24 09/25/2023 CULTU RE: GROUP B STREP KENDELLE N, REFLE X SUSCE PTIBI LITY result report SEE RESULT S BELOW Test: Cultu re: Group B Strep , Refle x Susce ptibi lity ([facility]/ [facility] ) Speci men Sourc e: Vagin a/Rec julio Speci men Type: Vagin al/Re ctal Speci men Date: 2023 4:41 PM Resul t Date: 024 2:21 PM Resul t Statu s: Final resul t Abnor mal: No Resul ting Lab: [facility] [address] [facility] [address] Tel: CULTU RE ----- ----- ----- --- No Group B strep isola solomon at 2 days (sisi ctive broth enhan cemen t) Not Available [facility] (Lab) [address] [facility], [place], [address], 09/28/2023 15:23:50 01/13/20 24 01/13/2024 CULTU RE: URINE result report SEE RESULT S BELOW abnormal Test: Cultu re: Urine Speci men Sourc e: Urine - Clean Catch Speci men Type: Urine Speci men Date: 2023 1655 Resul t Date: 2023 0954 Resul t Statu s: Final resul t Abnor mal: Yes Resul ting Lab: [facility] [address] [place] [address] Tel: CULTU RE ----- ----- ----- --- >100, 000 CFU/m l Klebs iella pneum oniae (Abno rmal) SUSCE PTIBI LITY ----- ----- ----- --- Klebs iella pneum oniae METHO D SARAH ----- ----- ----- ----- ----- ---- ----- ----- ----- ----- ----- - AMPIC ILLIN /SULB ACTAM >16 ug/mL Resis tant AZTRE ONAM <=4 ug/mL Susce ptibl e CEFAZ SAHCIN 8 ug/mL Susce ptibl e CEFEP NAOMI <=2 ug/mL Susce ptibl e CEFTA ZIDIM E <=1 ug/mL Susce ptibl e CEFTR IAXON E <=1 ug/mL Susce ptibl e CIPRO FLOXA JAIRO <=0.2 5 ug/mL Susce ptibl e GENTA MICIN <=2 ug/mL Susce ptibl e LEVOF LOXAC IN <=0.5 ug/mL Susce ptibl e MEROP ENEM <=1 ug/mL Susce ptibl e NITRO FURAN TOIN 64 ug/mL Inter media te PIPER ACILL IN/TA ZOBAC MÉNDEZ <=8 ug/mL Susce ptibl e TOBRA MYCIN <=2 ug/mL Susce ptibl e TRIME THOPR IM/JOSÉ LFAME THOXA ZOLE <=2 ug/mL Susce ptibl e Not Available [facility] (Lab) [address] [place], [address], 01/16/2024 10:59:23 01/13/20 24 01/13/2024 [facility] SWAB PLUS, RABIA bacterial vaginosis (bv), tma Negati ve negati ve Not Available [facility] (Lab) [address] [place], [address], 01/17/2024 08:23:45 01/13/20 24 01/13/2024 [facility] SWAB PLUS, RABIA lisa species, tma Negati ve negati ve Not Available [facility] (Lab) [address] [place], [address], 01/17/2024 08:23:45 01/13/20 24 01/13/2024 [facility] SWAB PLUS, RABIA lisa glabrata, tma Negati ve negati ve Not Available [facility] (Lab) [address] [facility], [place], [address], 01/17/2024 08:23:45 01/13/20 24 01/13/2024 [facility] SWAB PLUS, RABIA trichomonas vaginalis, tma Negati ve negati ve Not Available [facility] (Lab) [address] [facility], [place], [address], 01/17/2024 08:23:45 01/13/20 24 01/13/2024 [facility] SW[facility], RABIA chlamydia trachomatis, PCR Negati ve negati ve Not Available [facility] (Lab) [address] [facility], [place], [address], 01/17/2024 08:23:45 01/13/20 24 01/13/2024 [facility] SWAB PLUS, RABIA neisseria gonorrhoeae, PCR Negati ve negati ve Bacte rial vagin osis detec ts the follo wing bacte sp assoc iated with bacte rial vagin osis (BV): Lacto bacil rica (L. gasse ri, L. crisp atus and L. jense rosalba), Gardn erell a vagin ced, and Atopo bium vagin ae. A singl e quali tativ e resul t is repor solomon base on instr ument softw are to deter mine BV posit job or negat job statu s. The [facility] es group tests for C. albic ans, C. tropi calis , C. parap albert is, C. dubli niens is. Testi ng is perfo rmed using the Trans cript ion Media solomon Ampli ficat ion metho d. Tests for Crai da glabr kathy, Trich omona s vagin ced, Chlam ydia trach omati s, and Neiss eria gonor rhoea e are also inclu ded in this panel . Not Available [facility] (Lab) [address] [facility], [place], [address], 01/17/2024 08:23:45 01/13/20 24 01/13/2024 HERPE S SIMPL EX VIRUS , MOLEC ULAR DETEC TION, PCR, VARIE S specimen source VAGINA L LESION S Not Available [facility] (Lab) [address] [facility], [place], [address], 01/17/2024 08:23:46 01/13/20 24 01/13/2024 HERPE S SIMPL EX VIRUS , MOLEC ULAR DETEC TION, PCR, VARIE S hsv 1, PCR Negati ve negati ve Not Available [facility] (Lab) [address] [facility], [place], [address], 01/17/2024 08:23:46 01/13/20 24 01/13/2024 HERPE S SIMPL EX VIRUS , MOLEC ULAR DETEC TION, PCR, VARIE S hsv 2, PCR Negati ve negati ve ----- ----- ----- ----A DDITI ONAL INFOR MATIO N---- ----- ----- ----- This test was zenaida sweeney and its perfo rmanc e es cteri stics deter mined by [facility] in a pricilla r consi stent with CLIA rip dominguez. This test has not been clear ed or appro lazaro by the U.S. Food and Drug Admin istra tion. Test Perfo rmed by: [facility] Labor atori es - [facility] [address] , [place] [address] Lab Direc tor: Meche Garcia nn Ph.D. ; CLIA# [id number] Not Available [facility] (Lab) [address] [place], [address], 01/17/2024 08:23:46 03/31/20 24 03/31/2024 [facility] SWAB PLUS, RABIA bacterial vaginosis (bv), tma Negati ve negati ve Not Available [facility] (Lab) [address] [facility], [place], [address], 04/10/2024 19:09:40 03/31/20 24 03/31/2024 [facility] SWAB PLUS, RABIA lisa species, tma Negati ve negati ve Not Available [facility] (Lab) [address] [place], [address], 04/10/2024 19:09:40 03/31/20 24 03/31/2024 [facility] SWAB PLUS, RABIA lisa glabrata, tma Negati ve negati ve Not Available [facility] (Lab) [address] [facility], [place], [address], 04/10/2024 19:09:40 03/31/20 24 03/31/2024 [facility] SWAB PLUS, RABIA trichomonas vaginalis, tma Negati ve negati ve Not Available [facility] (Lab) [address] [place], [address], 04/10/2024 19:09:40 03/31/20 24 03/31/2024 [facility] SWAB [facility]US, RABIA chlamydia trachomatis, PCR Negati ve negati ve Not Available [facility] (Lab) [address] [place], [address], 04/10/2024 19:09:40 03/31/20 24 03/31/2024 [facility] SWAB PLUS, RABIA neisseria gonorrhoeae, PCR Negati ve negati ve Bacte rial vagin osis detec ts the follo wing bacte sp assoc iated with bacte rial vagin osis (BV): Lacto bacil rica (L. gasse ri, L. crisp atus and L. jense rosalba), Gardn erell a vagin ced, and Atopo bium vagin ae. A singl e quali tativ e resul t is repor solomon base on instr ument softw are to deter mine BV posit job or negat job statu s. The [facility] es group tests for C. albic ans, C. tropi calis , C. parap albert is, C. dubli niens is. Testi ng is perfo rmed using the Trans cript ion Media solomon Ampli ficat ion metho d. Tests for Cari da glabr kathy, Trich omona s vagin ced, Chlam ydia trach omati s, and Neiss eria gonor rhoea e are also inclu ded in this panel . Not Available [facility] (Lab) [address] [facility], [place], [address], 04/10/2024 19:09:40 03/31/20 24 03/31/2024 CULTU RE: URINE result report SEE RESULT S BELOW Test: Cultu re: Urine Speci men Sourc e: Urine - Clean Catch Speci men Type: Urine Speci men Date: 2023 1321 Resul t Date: 2023 0609 Resul t Statu s: Final resul t Abnor mal: No Resul ting Lab: [facility] [address] [facility] [address] Tel: CULTU RE ----- ----- ----- --- No growt h in 1 day (dete ction level of 10,00 0 colon ies / ml.) Not Available [facility] (Lab) [address] [facility], [place], [address], 04/10/2024 19:09:40 03/31/20 24 03/31/2024 CULTU RE: HSV/ VZV hsv culture/type Commen t Negat job No Herpe s simpl ex virus isola solomon. Not Available [facility] (Lab) [address] [facility], [place], [address], 04/10/2024 19:09:41 03/31/20 24 03/31/2024 CULTU RE: HSV/ VZV viral culture, rapid,varice lla Commen t Negat job No Varic wagner zoste r virus detec solomon by rapid viral cultu re. Not Available [facility] (Lab) [address] [facility], [place], [address], 04/10/2024 19:09:41 03/31/20 24 03/31/2024 urina lysis , dipst ick Leukocytes trace Not Available [facility] [address], [place], [address], 03/31/2024 12:08:20 03/31/20 24 03/31/2024 urina lysis , dipst ick Protein + Not Available [place] [address], [place], [address], 03/31/2024 12:08:20 03/31/20 24 03/31/2024 urina lysis , dipst ick pH 5 Not Available [place] [address], [place], [address], 03/31/2024 12:08:20 03/31/20 24 03/31/2024 urina lysis , dipst ick Blood trace Not Available [place] [address], [place], [address], 03/31/2024 12:08:20 03/31/20 24 03/31/2024 urina lysis , dipst ick Specific [place] 1.025 Not Available [facility] [address], [place], [address], 03/31/2024 12:08:20 03/31/20 24 03/31/2024 urina lysis , dipst ick Ketone + Not Available [place] [address], [place], [address], 03/31/2024 12:08:20 03/31/20 24 03/31/2024 urina lysis , dipst ick Appearance cloudy Not Available [facility] [address], [place], [address], 03/31/2024 12:08:20 03/31/20 24 03/31/2024 urina lysis , dipst ick Color Dark Yellow Not Available [place] [address], [place], [address], 03/31/2024 12:08:20 09/25/19 24 09/25/2023 US, obste tric, follo w-up No observ ation record ed. [email or web address] [place] [address], [place], [address], 09/25/2023 17:45:18 09/25/19 24 09/25/2023 US, obste tric, follo w-up No observ ation record ed. HOLLIE Tameka [address], [place], [address], 09/26/2023 17:11:27 Result Notes None recorded. Problems Name Problem SNOMED Code Status Onset Date Resolution Date Notes Provider Name and Address Organization Details Recorded Time Pregnanc y 79492070 Completed 202210/16/2023 Ian James [facility] 4 13:01:03 Anxiety disorder 670581782 Completed to see mfm- per MFM continue Lorazepa m lower dose pt taking 0.5mg BID Ian James [facility], [facility] 4 13:00:56 Past pregnanc y history of gestatio nal hyperten kalpesh [id number] Completed Ian James [facility], [facility] 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 4 18:13:10 Placenta circumva llata 5607095 Completed serial growth Ian James [facility], [facility] 4 13:00:56 Problem Notes None recorded. Procedures Surgical History Date Name Laterality Status Provider Name and Address Organization Details Recorded Time 3 Date of Last Pap Smear completed [facility] 06/30/2023 12:31:29 9 tonsilectomy/a denoids completed [facility] 06/30/2023 12:33:45 8 extraction of wisdom tooth completed [facility] 06/30/2023 12:34:05 Imaging Results Imaging Date Name Status LastModified by Organiz ation Details LastModified Time 09/25/2023 US, obstetric, [email or web address] [place] [address], [place], [address], 09/25/2023 17:45:18 09/25/2023 US, obstetric, follow-up completed HOLLIE English [address] [facility], [place], [address], 09/26/2023 17:11:27 Procedure Notes None recorded. Medical Equipment None Reported. Allergies No known drug allergies Medications Name Sig Start Date Stop Date Status Note LastModified by Organization Details LastModified Time doxycycli ne hyclate 100 mg capsule take 1 capsule (100MG) by oral route 2 times every day for 10 days 03/05 completed Prescrib ed Elsewher e: No Locat ion: [facility] odify By: cmedical Encount er DateTime : 02/25/20 13 11:39:45 AM Not Available Not Available Not Available azithromy jairo 250 mg tablet TAKE 2 TABLETS BY MOUTH TODAY, THEN TAKE 1 TABLET DAILY FOR 4 DAYS DIRECTED 07/13 completed Not Available Not Available Not Available ibuprofen 800 mg tablet TAKE 1 TABLET BY MOUTH EVERY 6-8 HOURS NEEDED active Not Available Not Available No t Available citalopra m 10 mg tablet TAKE 1 TABLET BY MOUTH EVERY DAY 04/07 completed Not Available Not Available Not Available hydrocodo ne 5 mg-acetam inophen 325 mg tablet TAKE 1 TABLET BY MOUTH EVERY 6 HOURS NEEDED FOR PAIN RATED 4-6 04/07 completed Not Available Not Available Not Available ondansetr on HCl 4 mg tablet TAKE 1-2 TABLETS BY MOUTH TWICE DAILY NEEDED FOR NAUSEA/V OMITING 03/10 completed Not Available Not Available Not Available prednison e 20 mg tablet TAKE 2 TABLETS BY MOUTH EVERY DAY FOR 5 DAYS 03/10 completed Not Available Not Available Not Available fluoxetin e 10 mg tablet TAKE 1 TABLET BY MOUTH EVERY DAY 03/10 completed Not Available Not Available Not Available ciproflox acin 250 mg tablet Take 1 tablet every 12 hours by oral route for 3 days. 2023 active Not Available Not Available Not Avai lable ciproflox acin 500 mg tablet TAKE 1 TABLET BY MOUTH EVERY 12 HOURS 01/12 completed Not Available Not Available Not Available amoxicill in 500 mg tablet TAKE 1 TABLET BY MOUTH EVERY 12 HOURS 01/12 completed Not Available Not Available Not Available oxycodone -acetamin ophen 5 mg-325 mg tablet TAKE 1 TABLET BY MOUTH EVERY 6 HOURS 01/12 completed Not Available Not Available Not Available citalopra m 20 mg tablet TAKE 1 TABLET BY MOUTH DAILY 04/07 completed Not Available Not Available Not Available lorazepam 0.5 mg tablet Take 1 tablet twice a day by oral route as directed . 2024 active Not Available Not Available Not Avai lable benzonata te 100 mg capsule TAKE 1 CAPSULE BY MOUTH EVERY 8 HOURS NEEDED 03/10 completed Not Available Not Available Not Available fluoxetin e 20 mg tablet TAKE 1 TABLET BY MOUTH EVERY DAY 03/10 completed Not Available Not Available Not Available tobramyci n 0.3 % eye drops INSTILL 1 DROP INTO AFFECTED EYE EVERY 4 HOURS 10/05 completed Not Available Not Available Not Available buspirone 7.5 mg tablet TAKE 1 TABLET BY MOUTH TWICE A DAY 03/10 completed Not Available Not Available Not Available methylpre dnisolone 4 mg tablets in a dose pack TAKE 6 TABLETS ON DAY 1 DIRECTED ON PACKAGE AND DECREASE BY 1 TAB EACH DAY FOR A TOTAL OF 6 DAYS 03/10 completed Not Available Not Available Not Available albuterol sulfate HFA 90 mcg/actua tion aerosol inhaler 2 PUFF INHALED FOUR TIMES DAILY NEEDED FOR SHORTNES S OF BREATH OR WHEEZING 03/10 completed Not Available Not Available Not Available Vitamin D2 1,250 mcg (50,000 unit) capsule take 1 capsule by oral route every week 08/30 completed Prescrib ed Elsewher e: No Locat ion: [facility] odify By: tish oseguera DateTime : 05/24/19 15 12:00:00 PM Not Available Not Available Not Available amoxicill in 875 mg-potass ium clavulana te 125 mg tablet TAKE 1 TABLET BY MOUTH TWICE A DAY FOR 7 DAYS 03/31 completed Not Available Not Available Not Available Zithromax 500 mg tablet take 2 tablet (1000MG) by oral route once 02/22 completed Prescrib ed Elsewher e: No Locat ion: [facility] odify By: amkellie oseguera DateTime : 02/24/20 13 11:01:51 AM Not Available Not Available Not Available escitalop raven 10 mg tablet TAKE 1 TABLET BY MOUTH DAILY active Not Available Not Available No t Available 05/17 (28) 1 mg-20 mcg (21)/75 mg (7) tablet take 1 tablet by oral route every day 11/18 completed Prescrib ed Elsewher e: No Locat ion: [facility] odify By: alessandra oseguera DateTime : 09/29/19 15 02:00:00 PM Not Available Not Available Not Available nitrofura ntoin monohydra te/macroc rystals 100 mg capsule TAKE 1 CAPSULE BY MOUTH EVERY 12 HOURS FOR 10 DAYS 03/10 completed Not Available Not Available Not Available chlorhexi dine gluconate 0.12 % mouthwash RINSE (SWISH AND SPIT) WITH 15ML AFTER BREAKFAS T AND AFTER DINNER TWO TIMES DAY 03/31 completed Not Available Not Available Not Available Vitamin 03/31 completed Not Available Not Available Not Available Vivitrol 380 mg intramusc ular suspensio n,extende d release 03/31 completed Not Available Not Available Not Available Soma 250 mg tablet take 1 tablet by oral route 3 times every day before meals and at bedtime 11/18 completed Prescrib ed Elsewher e: No Locat ion: [facility] odify By: alessandra oseguera DateTime : 08/31/19 15 08:30:00 AM Not Available Not Available Not Available Vitafol Ultra 29 mg iron-1 mg-200 mg capsule take 1 capsule by oral route every day 11/18 completed Prescrib ed Elsewher e: No Locat ion: [facility] odify By: alessandra Barajas ncounter DateTime : 03/08/20 14 11:36:29 AM Not Available Not Available Not Available One Daily 27 mg iron-800 mcg tablet take 1 tablet by oral route every day 11/18 completed Prescrib ed Elsewher e: Yes Loca tion: [facility] odify By: alessandra maceuntmarianne DateTime : 02/23/20 14 11:00:00 AM Not Available Not Available Not Available Vitals Date Recorded Body height Body mass index (BMI) Body weight Systolic blood pressure Diastolic blood pressure Provider Name and Address Organization Details Last Updated DateTime 10/06/2023 162.56 cm 36.2 kg/m2 64019.99 007 g 129 mm[Hg] 80 mm[Hg] Summer Jaime [facility] 4 17:36:29 Date Recorded Body height Body mass index (BMI) Body weight Systolic blood pressure Diastolic blood pressure Provider Name and Address Organization Details Last Updated DateTime 10/13/2023 162.56 cm 36.7 kg/m2 34224.76 718 g 128 mm[Hg] 84 mm[Hg] Summer Jaime [facility] 4 10:17:06 Date Recorded Body height Body mass index (BMI) Body weight Systolic blood pressure Diastolic blood pressure Provider Name and Address Organization Details Last Updated DateTime 11/17/2023 162.56 cm 30.9 kg/m2 54380.63 g 119 mm[Hg] 83 mm[Hg] Rosaura Goodman [facility] 4 16:22:45 Date Recorded Body height Body mass index (BMI) Body weight Systolic blood pressure Diastolic blood pressure Provider Name and Address Organization Details Last Updated DateTime 01/13/2024 162.56 cm 31.6 kg/m2 52000 g 139 mm[Hg] 87 mm[Hg] Summer Jaime [facility] 4 17:11:08 Date Recorded Body height Body mass index (BMI) Body weight Systolic blood pressure Diastolic blood pressure Provider Name and Address Organization Details Last Updated DateTime 03/31/2024 162.56 cm 33.2 kg/m2 43051.76 g 123 mm[Hg] 83 mm[Hg] Rosaura Rex [facility] 4 11:58:52 Social History Question Answer Notes LastModified by Organizat ion Details LastModified Time Tobacco Smoking Status Current Every Day Smoker Jazmyn virk, [facility] 04/07/2023 14:21:06 Are You Blind Or Do You Have Difficulty Seeing? No Information not available 03/10/2023 What Is Your Level Of Caffeine Consumption? Occasional Information not available 03/10/2023 How Much Tobacco Do You Chew? None Information not available 03/10/2023 In The 14 Days Before Symptom Onset, Have You Had Close Contact With A Laboratory-confir med COVID-19 While That Case Was Ill? No Information not available 03/10/2023 In The 14 Days Before Symptom Onset, Have You Had Close Contact With A Person Who Is Under Investigation For COVID-19 While That Person Was Ill? No Information not available 03/10/2023 Have You Been To An Area Known To Be High Risk For COVID-19? No Information not available 03/10/2023 Are You Deaf Or Do You Have Serious Difficulty Hearing? No Information not available 03/10/2023 What Type Of Diet Are You Following? REGULAR Information not available 03/10/2023 What Is The Highest Grade Or Level Of School You Have Completed Or The Highest Degree You Have Received? [id number] Information not available 03/10/2023 Are There Any Guns Present In Your Home? No Information not available 03/10/2023 Do You Use Protection During Sex? No Information not available 03/10/2023 Do You Use Your Seat Belt Or Car Seat Routinely? Yes Information not available 03/10/2023 Do You Have Smoke And Carbon Monoxide Detectors In Your Home? No Information not available 03/10/2023 At What Age Did You Start Smoking Tobacco? 12 Information not available 03/10/2023 How Much Tobacco Do You Smoke? 0.5 PPD Information not available 03/10/2023 Do You Use Sunscreen Routinely? No Information not available 03/10/2023 Have You Used IV Drugs? No Information not available 03/10/2023 Do You Have Difficulty Walking Or Climbing Stairs? No [email or web address] Information not available 06/30/2023 Sex: Unknown Functional Status Question Answer Note LastModified by Organizat ion Details LastModified Time Do you use any illicit or recreational drugs? No Information not available 03/10/2023 What is your level of alcohol consumption? None Information not available 03/10/2023 Are you able to walk? YESWOREST Information not available 03/10/2023 Are you able to care for yourself? Yes [email or web address] Information n ot available 06/30/2023 What is your occupation? None Information not available 03/10/2023 Do you have difficulty dressing or bathing? No [email or web address] Information not available 06/30/2023 What is your exercise level? None Information not available 03/10/2023 Mental Status Question Answer Note LastModified by Organization D etails LastModified Time Do you feel stressed (tense, restless, nervous, or anxious, or unable to sleep at night)? [id number] Information not available 03/10/2023 Family History Relationship Description Onset Age of this Age Resolved Age Notes LastModified by Organization Details LastModified Time Mother Diabetes mellitus Not available 2022 14:35:57 Medical History Condition Response Allergies (Food, seasonal, environmental ) N Other N Breast Cancer N Drug/Latex Allergies/Reactions N Blood Transfusion N Dermatologic Disorders N Lung Disease N Defects or Inherited Disease N Breast Problem N Gestational Diabetes N Hematologic disorders N Anesthesia Complications N History of STI Y Deep Vein Thrombosis N Polycystic ovary syndrome N Anxiety Disorder Y Autoimmune disease N Arthritis N Infertility N Polyps N Acid Reflux (GERD) N History of abnormal pap N Cancer N Stroke N Varicosities N Neurologic/Epilepsy N Endometriosis N High Cholesterol N Headaches N Fibromyalgia N Kidney Disease N Heart Problems N Kidney or Bladder Problems N Thyroid Problems N GI Problems N Eating Disorder N Anemia N Art (IVF or FET) N Psychiatric Illness N Ovarian Cancer N Diabetes N Pulmonary (TB, Asthma) N Hepatitis/Liver Disease N No Past Medical History N Eczema N Urinary Tract Infection N Abuse/Domestic Violence N Asthma N Trauma/Violence N Depression/ depression Y Heart Disease N Pre-Eclampsia N Hypertension N Osteoporosis N Thrombophilias N Gynecological History Statement/Question Response Flow Moderate Date of Last Mammogram Date of LMP 03/21/2024 On BCP's at Conception? N N Was last menstrual period normal Y STIs/STDs Y HPV Vaccine N Duration of Flow (days) 6 Current Control Method None Are cycles usually normal Y Frequency of Cycle (Q days) 28 Sexually Active? Y Menses Monthly Y Date of DEXA bone scan Age of first menstrual cycle 8 Date of Last Pap Smear 03/10/2023 Sexual Problems? N LMP Definite N Obstetrics History GPAL:G 2 P 2 0 0 2 Type Value Full Term 2 Living 2 Total 2 Past Encounters Encounter ID Performer Location Encounter Start Date Encounter Closed Date Diagnosis/Indication Diagnosis SNOMED-CT Code Diagnosis ICD10 Code Diagnosis Note [id number] Jim Samuel MD [facility] [address],[place] [address] 03/10/2023 12:25:36 03/10/2023 12:54:44 [id number] Jim Samuel MD [facility] [address],[place] [address] 03/10/2023 12:27:22 03/10/2023 17:25:18 Vitamin D deficiency 13840301 E55.9 Amenorrhea 98201148 N91. 2 27-year-ol d female multiparou s, who presents for amenorrhea . She is a positive test and has a ultrasound that shows a 8 week 0 day gestation. By last menstrual period she is 7 weeks and 6 days' gestation . We discussed her medical history. she had gestationa l hypertensi on or preeclamps ia in her previous gestation. She is been taking lorazepam while she is been . Talked about diet, exercise, over-the-c ounter medication s in . We talked about vaccinatio ns and genetic testing. She will return for initiation of care. [id number] MD Katia Carter [address],[place] [address] 04/07/2023 14:20:49 04/07/2023 15:42:59 [id number] MD Katia Carter [address],[place] [address] 04/07/2023 14:21:01 04/07/2023 16:18:38 Routine care 859080812 Z34.90 [id number] MD Katia Carter [address],[place] [address] 05/05/2023 15:06:25 05/05/2023 16:10:37 Routine care 702169740 Z34.90 [id number] MD Katia Carter [address],[place] [address] 06/02/2023 16:29:36 06/03/2023 09:10:08 screening for malformation 359324268 Z36.3 Z3A.19 [id number] MD Katia Carter [address],[place] [address] 06/02/2023 16:29:53 06/03/2023 18:32:30 [id number] MD Katia Carter [address],[place] [address] 06/30/2023 11:23:56 06/30/2023 12:15:51 Placenta circumvallata 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 O43.112 O35.00X0 Z3A.23 [id number] MD Katia Carter [address],[place] [address] 06/30/2023 11:24:32 06/30/2023 16:25:26 [id number] MD Katia Carter [address],[place] [address] 06/30/2023 12:55:35 06/30/2023 13:04:47 [id number] MD Katia Carter [address],[place] [address] 07/14/2023 15:02:04 07/14/2023 16:16:53 Routine care 710710882 Z34.90 [id number] MD Katia Carter [address],[place] [address] 07/28/2023 13:50:25 07/28/2023 14:38:33 Placenta circumvallata 2551548 O43.112 Z3A.27 [id number] MD Katia Carter [address],[place] [address] 07/28/2023 13:51:02 07/28/2023 15:21:38 Routine care 935498293 Z34.90 [id number] MD Katia Carter [address],[place] [address] 08/13/2023 17:52:33 08/14/2023 02:33:33 Routine care 169183209 Z34.90 [id number] MD Katia Carter [address],[place] [address] 08/27/2023 16:27:33 08/27/2023 17:29:54 Placenta circumvallata 1177584 O43.112 Z3A.27 Z3A.32 [id number] MD Katia Carter [address],[place] [address] 08/27/2023 16:27:51 08/27/2023 18:00:59 Routine care 327230149 Z34.90 [id number] Jim Samuel MD [facility] [address],[place] [address] 09/10/2023 17:24:24 09/11/2023 11:34:51 Routine care 598734363 Z34.90 [facility] 70269763 R53.83 [id number] Jim Samuel MD [facility] [address],[place] [address] 09/25/2023 15:46:13 09/25/2023 16:20:22 Placenta circumvallata 7656134 O43.113 Z3A.36 [id number] Jim Samuel MD [facility] [address],[place] [address] 09/25/2023 15:47:28 09/25/2023 17:25:55 Conjunctivitis 4611623 H10.9 Routine an tenatal care 744284292 Z34.90 [id number] Jim Samuel MD [facility] [address],[place] [address] 10/06/2023 17:31:06 10/07/2023 02:50:43 Routine care 675206772 Z34.90 [id number] Jim Samuel MD [facility] [address],[place] [address] 10/13/2023 10:12:45 10/13/2023 10:53:50 Routine care 924415787 Z34.90 [id number] Jim Samuel MD [facility] [address],[place] [address] 11/17/2023 15:57:23 11/17/2023 17:07:40 Urinary tract infectious disease 66641236 N39.0 this patient is a 28-year-ol d female who presents for follow-up. She is reporting some back pain that is significan t. She states that she has pain that is starts in the area of her epidural on radiates upward to her neck. We agreed to observe her pain and consider other treatment options later. Are offered her muscle relaxers. She declined. I gave her instructio ns on anti-infla mmatories. Her baby is doing well. The baby is bottle feeding. Mother reports that she is well. Her mood is good. Only the back pain is the problem. Her bleeding has resolved. She has had intercours e. She does not want contracept ion at this time. She will return in 2 months for well-woman exam. [id number] MIKALA GALE MD [facility] [address] [address] 01/13/2024 16:30:48 01/13/2024 18:03:57 Venereal disease screening 522794893 Z11.3 - swabs sent for GC/CT/tric h and HSV swab on possible lesions, though do not appear classicall y like HSV lesions- will also send urine culture- will treat based on results- declines blood testing for HIV/HepB/H epC/RPR as well as contracept ion [id number] GURU Coronado [facility] [address] [address] 03/31/2024 11:46:53 03/31/2024 14:02:34 Urinary symptoms 278597030 R39.9 vaginitis/ STI panel senturine cx sentHSV PCR sent on possible lesions, however does not appear classicall y like HSV lesionsrx sent for suspected UTI - r/b/a reviewedvu lvar care guidelines discussed, questions answered Time spent in visit is a total of 30 mins with at least 50% of visit consisting of counseling and review of plan of care. Venereal d isease screening 759687050 Z11.3 Health Concerns Section Related Observation LastModified by Organization Detai ls LastModified Time None Recorded Concern Status LastModified by Organization Details LastModified Time None Recorded Advance Directives Directive None Recorded Payers Encounter Date Sequence Insurance Name Policy Number Policy Sr Covered Member ID Sr Member ID Guarantor Name 10/06/2023 1 [facility] ON OR AFTER 10/26/20 (MEDICAID REPLACEMENT - HMO) [id number] Vanesa Preciado [id number] Vanesa Preciado 10/13/2023 1 [facility] ON OR AFTER 10/26/20 (MEDICAID REPLACEMENT - HMO) [id number] Vanesa Preciado [id number] Vanesa Ilana 11/17/2023 1 [facility] ON OR AFTER 20 (MEDICAID REPLACEMENT - HMO) [id number] Vanesa Harrellper [id number] Vanesa Harrellper 01/13/2024 1 [facility] - DOS ON OR AFTER 20 (MEDICAID REPLACEMENT - HMO) [id number] Vanesa Harrellper [id number] Vanesa Ilana 03/31/2024 1 [facility] - DOS ON OR AFTER 20 (MEDICAID REPLACEMENT - HMO) [id number] Vanesa Harrellper [id number] Vanesa Harrellper Notes Date Note Type Note Provider Name and Address Organization Details Recorded Time 11/17/2023 text/html this patient is a 28-year-old female who presents for follow-up. She is reporting some back pain that is significant. She states that she has pain that is starts in the area of her epidural on radiates upward to her neck. We agreed to observe her pain and consider other treatment options later. Are offered her muscle relaxers. She declined. I gave her instructions on anti-inflammatories . Her baby is doing well. The baby is bottle feeding. Mother reports that she is well. Her mood is good. Only the back pain is the problem. Her bleeding has resolved. She has had intercourse. She does not want contraception at this time. She will return in 2 months for well-woman exam. Jim Samuel MD [address], [place], [address], [facility] 11/17/2023 16:59:14 01/13/2024 text/html Patient reports 5 day history of malodorous discharge and vaginal/vulvar bumps. Discharge is whitish/huitron. Bumps are not painful. Declines contraception. MIKALA GALE MD [address], [place], [address], [facility] 01/13/2024 17:30:30 03/31/2024 text/html 28yopresents for urinary burning/frequency x 5 daysvulvar irritation/bumpsvag inal odornew partner a few months ago and would like STI testing neg d/c, n/v/f, or pelvic pain GURU Coronado [address], [place], [address], [facility] 03/31/2024 13:54:09 OBGyn Episode Ob Episode Information Episode Created Date Number of Fetuses Patient Bloodtype Patient rh Status Prepregnancy Weight lbs Domestic Partner Domestic Partner Phone Father Name Manager Personal Status 03/10/20 23 1 CLOSED Fetus Data First Name Last Name Admitted to NICU Weight (g) Sex Living Outcome Pediatric Complications Fetus ID Race Codes Race Delivery Type 3288.54 2 F Full Term [id number] Vaginal Delivery Nico Calculation Initial Nico Date Initial Exam Date Initial Exam Provider Initial Ultrasound Date Last Menstrual Period Date Ultra Sound Weeks Gestation 0 Eighteen To Twenty Week Nico Update Ultra Sound Date Fundal Height At Umbil Quickening Date Ultra Sound Latest Weeks Gestation Final Nico Confirmed By Final Nico Confirmed Date Final Nico Date Ultra Sound Latest Days Gestation 0 0 Menstrual History Last Menstrual Date Menses Monthly On Bcp Conception Prior Menses Frequency Hcg Plus Date Menarche Onset Age Delivery Information Delivery Date Delivery Type Labor Anesthesia Weeks Gestation Incision Type Labor Labor Length Hrs Delivered By Post Complications Tubal Sterilization Discharge Date Comments 5 39 Kaykay per pt. 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 scan Problem Name Start Date End Date Resolution Snomed Code Not e 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 Anxiety disorder 669100200 to see mfm- per MFM continue Lorazepam lower dose pt taking 0.5mg BID Past history of gestational hypertension 463914315 Nico Calculation Initial Nico Date Initial Exam Date Initial Exam Provider Initial Ultrasound Date Last Menstrual Period Date Ultra Sound Weeks Gestation 10/21/2023 04/07/2023 03/10/2023 01/14/2023 8 Eighteen To Twenty Week Nico Update Ultra Sound Date Fundal Height At Umbil Quickening Date Ultra Sound Latest Weeks Gestation Final Nico Confirmed By Final Nico Confirmed Date Final Nico Date Ultra Sound Latest Days Gestation 0 [email or web address] 04/07/2023 10/21/19 24 0 Pre- Flowsheet Flowsheet Date 04/07/2023 Calixto Score Blood Edema Fundus Height Fundus Units Glucose Ketones Leukocytes Nitrite Labor Signs Protein Cervic Dilation Cervic Effacement Cervic Station Type Weight in lbs Pre/Post Dialysis Refused Weight 204.102797959577 BP Diastolic BP Location Tested BP Systolic BP Type 80 R arm 128 sitting Fetus Heart Rate Present A 134 Fetus Movement Comments 27-year-old 2 para 1 001 at 11 weeks' gestation who presents for initial care. She is not vaccinated but has been exposed to COVID numerous times. She was given other vaccine recommendations. She has a that was affected by gestational hypertension. It was at the 39th week of her . She is no complaints. She does report anxiety in the use of lorazepam. She will be seeing [facility] shortly for consult re lorazepam exposure. We discussed care in detail. Flowsheet Date 05/05/2023 Calixto Score Blood Edema Fundus Height Fundus Units Glucose Ketones Leukocytes Nitrite Labor Signs Protein Cervic Dilation Cervic Effacement Cervic Station 15 Type Weight in lbs Pre/Post Dialysis Refused Weight 208.950528715019 BP Diastolic BP Location Tested BP Systolic BP Type 76 R arm 120 sitting Fetus Heart Rate Present A 145 Fetus Movement Comments no complaints, no problems, routine care, [facility] saw her regarding benzodiazepines, she was allowed to continue, anatomy at next visit Flowsheet Date 06/02/2023 Calixto Score Blood Edema Fundus Height Fundus Units Glucose Ketones Leukocytes Nitrite Labor Signs Protein Cervic Dilation Cervic Effacement Cervic Station Type Weight in lbs Pre/Post Dialysis Refused BP Diastolic BP Location Tested BP Systolic BP Type Fetus Heart Rate Present Fetus Movement Comments Flowsheet Date 06/02/2023 Calixto Score Blood Edema Fundus Height Fundus Units Glucose Ketones Leukocytes Nitrite Labor Signs Protein Cervic Dilation Cervic Effacement Cervic Station Type Weight in lbs Pre/Post Dialysis Refused Weight 202.477049201047 BP Diastolic BP Location Tested BP Systolic BP Type 75 L arm 117 sitting Fetus Heart Rate Present Fetus Movement Comments Pt. not seen for this apt. S B out for surgery and pt. did not want to wait or r/s. Pt. states doing well, having some N&V. Flowsheet Date 06/30/2023 Calixto Score Blood Edema Fundus Height Fundus Units Glucose Ketones Leukocytes Nitrite Labor Signs Protein Cervic Dilation Cervic Effacement Cervic Station Type Weight in lbs Pre/Post Dialysis Refused BP Diastolic BP Location Tested BP Systolic BP Type Fetus Heart Rate Present Fetus Movement Comments Flowsheet Date 06/30/2023 Calixto Score Blood Edema Fundus Height Fundus Units Glucose Ketones Leukocytes Nitrite Labor Signs Protein Cervic Dilation Cervic Effacement Cervic Station Type Weight in lbs Pre/Post Dialysis Refused BP Diastolic BP Location Tested BP Systolic BP Type Fetus Heart Rate Present Fetus Movement Comments Flowsheet Date 06/30/2023 Calixto Score Blood Edema Fundus Height Fundus Units Glucose Ketones Leukocytes Nitrite Labor Signs Protein Cervic Dilation Cervic Effacement Cervic Station neg none none trace Type Weight in lbs Pre/Post Dialysis Refused Weight 203.94879311464 BP Diastolic BP Location Tested BP Systolic BP Type 78 116 Fetus Heart Rate Present Fetus Movement A Yes Comments patient is having some cramp ing, nausea and vomiting. Flowsheet Date 07/14/2023 Calixto Score Blood Edema Fundus Height Fundus Units Glucose Ketones Leukocytes Nitrite Labor Signs Protein Cervic Dilation Cervic Effacement Cervic Station neg none none trace Type Weight in lbs Pre/Post Dialysis Refused Weight 205.310241756496 BP Diastolic BP Location Tested BP Systolic BP Type 76 119 Fetus Heart Rate Present A 145 Fetus Movement A Yes Comments patient reports anxiety with diaphoresis and tremor about 1 hour after eating meals. Discussed possible hypoglycemia and ways to prevent it. She will get growth ultrasound at next visit Flowsheet Date 07/28/2023 Calixto Score Blood Edema Fundus Height Fundus Units Glucose Ketones Leukocytes Nitrite Labor Signs Protein Cervic Dilation Cervic Effacement Cervic Station Type Weight in lbs Pre/Post Dialysis Refused BP Diastolic BP Location Tested BP Systolic BP Type Fetus Heart Rate Present Fetus Movement Comments Flowsheet Date 07/28/2023 Calixto Score Blood Edema Fundus Height Fundus Units Glucose Ketones Leukocytes Nitrite Labor Signs Protein Cervic Dilation Cervic Effacement Cervic Station neg none 28 none trace Type Weight in lbs Pre/Post Dialysis Refused Weight 204.164479612141 BP Diastolic BP Location Tested BP Systolic BP Type 74 115 Fetus Heart Rate Present A 145 Fetus Movement A Yes Comments Patient is having some cramp ing. Isolated, occasional. Good growth ultrasound today. Diabetes testing today. Flowsheet Date 08/13/2023 Calixto Score Blood Edema Fundus Height Fundus Units Glucose Ketones Leukocytes Nitrite Labor Signs Protein Cervic Dilation Cervic Effacement Cervic Station neg none none trace Type Weight in lbs Pre/Post Dialysis Refused Weight 204.686442284120 BP Diastolic BP Location Tested BP Systolic BP Type 69 L arm 116 sitting Fetus Heart Rate Present Fetus Movement A Yes Comments past 1 hour glucose toleranc e test. No complaints today. Problems are stable. Flowsheet Date 08/27/2023 Calixto Score Blood Edema Fundus Height Fundus Units Glucose Ketones Leukocytes Nitrite Labor Signs Protein Cervic Dilation Cervic Effacement Cervic Station Type Weight in lbs Pre/Post Dialysis Refused BP Diastolic BP Location Tested BP Systolic BP Type Fetus Heart Rate Present Fetus Movement Comments Flowsheet Date 08/27/2023 Calixto Score Blood Edema Fundus Height Fundus Units Glucose Ketones Leukocytes Nitrite Labor Signs Protein Cervic Dilation Cervic Effacement Cervic Station neg none none trace Type Weight in lbs Pre/Post Dialysis Refused Weight 205.184665509546 BP Diastolic BP Location Tested BP Systolic BP Type 78 L arm 121 sitting Fetus Heart Rate Present A 145 Fetus Movement A Yes Comments No complaints, no problems, routine care good growth ultrasound today. Flowsheet Date 09/10/2023 Calixto Score Blood Edema Fundus Height Fundus Units Glucose Ketones Leukocytes Nitrite Labor Signs Protein Cervic Dilation Cervic Effacement Cervic Station neg none none trace 0cm 0% Type Weight in lbs Pre/Post Dialysis Refused Weight 203.77172010007 BP Diastolic BP Location Tested BP Systolic BP Type 76 L arm 119 sitting Fetus Heart Rate Present A 144 Fetus Movement A Yes Comments Patient c/o of slight crampi ng in lower abdomen, cervix was checked, long thick closed, checking blood counts, checking urine for urinary tract infection, suprapubic cramping and pressure. Flowsheet Date 09/25/2023 Calixto Score Blood Edema Fundus Height Fundus Units Glucose Ketones Leukocytes Nitrite Labor Signs Protein Cervic Dilation Cervic Effacement Cervic Station Type Weight in lbs Pre/Post Dialysis Refused BP Diastolic BP Location Tested BP Systolic BP Type Fetus Heart Rate Present Fetus Movement Comments Flowsheet Date 09/25/2023 Calixto Score Blood Edema Fundus Height Fundus Units Glucose Ketones Leukocytes Nitrite Labor Signs Protein Cervic Dilation Cervic Effacement Cervic Station neg none none trace 1cm 20% -4 Type Weight in lbs Pre/Post Dialysis Refused Weight 208.220236561669 BP Diastolic BP Location Tested BP Systolic BP Type 83 L arm 123 sitting Fetus Heart Rate Present A 154 Fetus Movement A Yes Comments Patient c/o of cramps and sh jeanne lower abdomen pain, GBS performed, unfavorable cervix. Normal growth ultrasound today Flowsheet Date 10/06/2023 Calixto Score Blood Edema Fundus Height Fundus Units Glucose Ketones Leukocytes Nitrite Labor Signs Protein Cervic Dilation Cervic Effacement Cervic Station neg none none trace 2cm 60% -2 Type Weight in lbs Pre/Post Dialysis Refused Weight 211.721175218546 BP Diastolic BP Location Tested BP Systolic BP Type 80 L arm 129 sitting Fetus Heart Rate Present Fetus Movement A Yes Comments Patient c/o of slight cramps , thinks it could be T[place], a much better exam today, to be induced in 9 days. Flowsheet Date 10/13/2023 Calixto Score Blood Edema Fundus Height Fundus Units Glucose Ketones Leukocytes Nitrite Labor Signs Protein Cervic Dilation Cervic Effacement Cervic Station neg none none trace 3cm 50% Type Weight in lbs Pre/Post Dialysis Refused Weight 214.133830421572 BP Diastolic BP Location Tested BP Systolic BP Type 84 L arm 128 sitting Fetus Heart Rate Present Fetus Movement A Yes Comments Patient c/o of slight nausea . Along with pains in legs, lower back and [place] , very favorable cervix, 2 induced in 2 days. Menstrual History Last Menstrual Date Menses Monthly On Bcp Conception Prior Menses Frequency Hcg Plus Date Menarche Onset Age 0901/14/2023 Genetic Screening And Infection History Question Response Note Mental Retardation/Autism false Patient's Age Will Be 35 Years Or Older At Estim ated Date of Delivery false Thalassemia (Namibian, Colombian, Mediterranean, Or Background): MCV < 80 false Neural Tube Defect (Meningomyelocele, Spina Bifi da, Or Anencephaly) false Congenital Heart Defect false Down Syndrome false Lei-Sachs (eg, Spiritism, Cajun, Tuvaluan-Citizen Of [place]) f alse Bree Disease false Sickle Cell Disease Or Trait () false Hemophilia Or Other Blood Disorders false Muscular Dystrophy false Cystic Fibrosis false Dede's Chorea false Intellectual Disability/Autism false If Yes, Was Person Tested For Fragile X? false Other Inherited Genetic Or Chromosomal Disorder false Maternal Metabolic Disorder (eg, Type 1 Diabetes , PKU) false Patient Or Baby's Father Had A Child With Defects Not Listed Above false Recurrent Loss, Or A Stillbirth false Medications (including Suppl ements, Vitamins, Herbs, OTC Drugs), Illicit/Recreational Drugs, Alcohol false If Yes, Agent(s) And Strength/Dosage false Any Other Genetic History false Live With Someone With TB Or Exposed To TB false Patient Or Partner Has History Of Genital Herpes false Rash Or Viral Illness Since Last Menstrual Perio d false History Of STD, Gonorrhea, Chlamydia, HPV, Syphi lis false Other Infection History false History of HIV false History of Hepatitis false Prior GBS-infected child false Hemoglobinopathy Or Carrier false Other Structural Defect false Recent Travel History Outside of Country false Delivery Information Delivery Date Delivery Type Labor Anesthesia Weeks Gestation Incision Type Labor Labor Length Hrs Delivered By Post Complications Tubal Sterilization Discharge Date Comments 4 Induce d [facility] 39.1 false Jim Samuel MD Anxiety disorder, Past history of gestation al hypertens ion,Place nta circumval martha Discharge Information Feeding Method Contraceptive Method Maternal HG B and HCT Levels
[2024-09-14 17:20] LABS: Add Urine Microscopic? YES; Appearance Urine Cloudy (Clear); Bacteria Urine None Seen /hpf; Bilirubin Urine Negative (Negative); Blood Urine Negative (Negative); Color Urine Yellow (Yellow); Glucose Urine UA Negative (Negative); Ketones Urine Negative (Negative); Leukocyte Esterase Ur Trace LEU/UL (Negative); Need Manual Microscopic Reviewed; Nitrate Urine Negative (Negative); Non Pathogenic Casts 0-2; Protein Urine Negative (Negative); Specific Grav Ur 1.022 (1.001-1.035); Squamous Epithelial Cell Urine Few /hpf (Few); Urobilinogen Urine 0.2 mg/dL (<2.0); pH Urine 5.5 (5.0-9.0)
== END 2024-09-14 16:23 | disposition home or self-care (01) ==
LOC: ANHLAB 16:24
PROVIDERS: PCP Nurse Practitioner Family; Visit Provider Nurse Practitioner Family
DX: R30.0 Dysuria (principal)
CPT/HCPCS: 81001; 87086

== ENCOUNTER 2025-01-27 09:37 | Outpatient (CLI) | payer OTHER, SELFPAY ==
--- OUTSIDE RECORDS SUMMARY | 2007-12-15 11:15 | XMS_ITS | Continuity of Care Document ---
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 [address] [facility] [place] , [address], [place], [address], [place]. tel:[phone] Family History Family Member Type Diagnosis Age At Onset No Information Payers Payer name Insurance type Covered green party ID Authoriza tion(s) Medicaid [facility] [id number] Social History Type Description Quantity Date Captured Comments Sex Female Smoking Status No Information Chief Complaint And Reason For Visit No Information Reason For Referral Reason For Referral No Information History Of Present Illness Encounter Date Complaint History Of Prese nt Illness No Information Functional Status Date Functional Assessmen t No Information Instructions Date Instruction Additional Infor mation No Information Assessments Type Assessment Date No Information Patient Care Teams Name Effective Dates (start - stop) Status Members No Information
--- OUTSIDE RECORDS SUMMARY | 2024-01-02 04:00 | XMS_ITS ---
Author Organization Formerly [facility] Address [address] [place] [address] Care Team Providers Care Hand Potter Name Role Phone Peyton Morgan Primary Care Provider [phone] Fabiana Bailey Unavailable [phone] REASON FOR VISIT MATNP; DOC: Alcohol; Last Use: 12/27; ANTABUSE; used to be pt. Encounters Encounter Location Date Provider Diagnosis [address] [place] [address] 01/02/2024 Fabiana Bailey Plan Of Treatment No Information Progress Notes * Jun BARRYOB:[birth year] (29 yo F)Acc No.[id number]:01/02/2024 UNLOCKED PROGRESS NOTE Patient: Vanesa TOVAR Provider: Etta Bailey MSN, NARROW FABRIC LOOM FIXER, MONEY MANAGER-C :1995 A ge:28 Y S ex:Female Date:01/02/2024 Address:[facility] [address], [place], [place] Pcp:Peyton Morgan Subjective: * Chief Complaints: * 1 . MATNP; DOC: Alcohol; Last Use: 12/27; ANTABUSE; used to be pt.. * Medical History: Objective: * Vitals: Assessment: Plan: * Treatment: * * Electronic signature of Charline Bailey APRN, [id number] on 01/27/2025 at 10:07 AM CDT Sign off status: Pending * Provider: Etta Bailey, MSN, NARROW FABRIC LOOM FIXER, MONEY MANAGER-C Date: 0 01/02/2024 Generated for Casey khan/Lurdes/Keiraitting on: 1 10:07 AM CDT
--- OUTSIDE RECORDS SUMMARY | 2024-02-04 10:40 | XMS_ITS ---
Author Organization [facility] Address [address] [place] [address] Care Team Providers Care Outdoor Adventure Guides Name Role Phone Peyton Morgan Primary Care Provider Fabiana Bailey Unavailable [phone] REASON FOR VISIT 1 month MAT Vivitrol Encounters Encounter Location Date Provider Diagnosis [place] [address] [place] [address] 02/04/2024 Fabiana Bailey Plan Of Treatment No Information Progress Notes * Jun BARRYOB:[birth year] (29 yo F)Acc No.[id number]:02/04/2024 UNLOCKED PROGRESS NOTE Patient: Vanesa TOVAR Provider: Etta Bailey MSN, TABLET MACHINE OPERATOR, BOBTAILER-C :1995 A ge:28 Y S ex:Female Date:02/04/2024 Address:[facility] [address], [place], [place] Pcp:Peyton Morgan Subjective: * Chief Complaints: * 1 . 1 month MAT Vivitrol. * Medical History: Objective: * Vitals: Assessment: Plan: * Treatment: * Care Plan Details* * Electronic signature of Charline Bailey APRN, [id number] on 01/27/2025 at 10:06 AM CDT Sign off status: Pending * Provider: Etta Bailey, MSN, TABLET MACHINE OPERATOR, BOBTAILER-C Date: 1 Generated for Dominicki erin/Chevyg/eTransmitting on: 1 10:06 AM CDT
--- OUTSIDE RECORDS SUMMARY | 2024-11-24 08:40 | XMS_ITS ---
Author Organization [facility] Address [address] [place] [address] Care Team Providers Care Hotbed Lever Operator Name Role Phone Peyton Morgan Primary Care Provider Fabiana Bailey [phone] REASON FOR VISIT mat new, alcohol, last use: 11/18/2024, wants to discuss options Encounters Encounter Location Date Provider Diagnosis [place] [place] [address] 11/24/2024 Fabiana Bailey Plan Of Treatment No Information Progress Notes * Jun BARRYOB:[birth year] (29 yo F)Acc No.[id number]:11/24/2024 UNLOCKED PROGRESS NOTE Patient: Vanesa TOVAR Provider: ADELINE Clarke, PILE DRIVING SETTER, VISION REHABILITATION THERAPIST-C :1995 A ge:29 Y S ex:Female Date:11/24/2024 Address:[facility] [address], [place], [place]-[address] Pcp:Peyton Morgan Subjective: * Chief Complaints: * 1 . Mat new, alcohol, last use: 11/18/2024, wants to discuss options. * Medical History: Objective: * Vitals: Assessment: Plan: * Treatment: * * Electronic signature of Charline Bailey APRN, [id number] on 01/27/2025 at 10:07 AM CDT Sign off status: Pending * Provider: Etta Bailey, MSN, PILE DRIVING SETTER, VISION REHABILITATION THERAPIST-C Date: 0 11/24/2024 Generated for Casey khan/Lurdes/Keiraitting on: 1 10:07 AM CDT
--- OUTSIDE RECORDS SUMMARY | 2024-11-30 09:20 | XMS_ITS ---
Author Organization [facility] Address [address] [place] [address] Care Team Providers Care Geographic Information System Surveyor Name Role Phone Peyton Morgan Primary Care Provider Fabiana Bailey [phone] REASON FOR VISIT MAT f/u Encounters Encounter Location Date Provider Diagnosis [place] [address] [place] [address] 11/30/2024 Fabiana Bailey Plan Of Treatment No Information Progress Notes * Jun BARRYOB:[birth year] (29 yo F)Acc No.[id number]:11/30/2024 UNLOCKED PROGRESS NOTE Patient: Vanesa TOVAR Provider: Etta Bailey MSN, UROLOGY SURGEON, SUPERVISOR HAND WORKERS-C :1995 A ge:29 Y S ex:Female Date:11/30/2024 Address:[facility] [address], [place], [place]-[address] Pcp:Peyton Morgan Subjective: * Chief Complaints: * 1 . MAT f/u. * Medical History: Objective: * Vitals: Assessment: Plan: * Treatment: * Care Plan Details* * Electronic signature of Charline Bailey APRN, [id number] on 01/27/2025 at 10:07 AM CDT Sign off status: Pending * Provider: Etta Bailey, MSN, UROLOGY SURGEON, SUPERVISOR HAND WORKERS-C Date: 0 11/30/2024 Generated for Casey khan/Lurdes/eTransmitting on: 1 10:07 AM CDT
[2025-01-27 09:58] LABS: Hematocrit 41.5 % (37.0-47.0); Hemoglobin 14.4 g/dL (12.0-15.0); Immature Granulocyte Percent A 0.5 % (0-0.5); Lymphocytes Absolute Auto 1.76 K/mm3 (0.9-3.2); Mean Corpuscular HGB Conc 34.7 g/dl (32-36); Mean Corpuscular Hemoglobin 31.3 pg (26-34); Mean Corpuscular Volume 90.2 fl (80-100); Nucleated Red Blood Cells Absolute Auto 0.000 K/mm3 (0.0-0.012); Nucleated Red Blood Cells Perc 0.0 % (0.0-0.2); Platelet Count Result 256 k/mm3 (150-375); Red Blood Count 4.60 M/mm3 (4.2-5.4); White Blood Count 7.8 K/mm3 (4.5-10.0)
--- OUTSIDE RECORDS SUMMARY | 2025-01-27 10:06 | XMS_ITS | Clinical Summary ---
Author Organization [facility] Address [address] [place] [address] Care Team Providers Care Housing Counselor Name Role Phone Unavailable Primary Care Provider Unavailabl e Source Comments [facility],non-owned Affiliates and Associated Physician Practices is amultiple site organization consisting of ambulatory clinics and hospital sitesin [place], [place], [place] and [place]. This disclosure is being madepursuant to the Care Everywhere program and may not contain all information available regarding this patient. Last updated 18.[facility] [place] Allergies No known active allergies Medications * [...] drink = 0.6 oz pur e alcohol) Rochester Depression Scale Answer Date Recorded [place] Depression Scale Total 3 04/09/2023 The thought of harming myself has occurred to me . 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 Not on file Not on file Not on file Last Filed Vital Signs Vital Sign Reading Time Taken Comments Blood Pressure 112/74 04/09/2023 1:59 PM DIRECTOR SALES AND MARKETING Pulse 82 04/09/2023 1:59 PM DIRECTOR SALES AND MARKETING Temperature - - Respiratory Rate - - Oxygen Saturation - - Inhaled Oxygen Concentration - - Weight 93.1 kg (205 lb 3.2 oz) 04/09/2023 1:59 P M DIRECTOR SALES AND MARKETING Height 162.6 cm (5' 4) 04/09/2023 1:59 PM DIRECTOR SALES AND MARKETING Body Mass Index 35.22 04/09/2023 1:59 PM DIRECTOR SALES AND MARKETING Plan of Treatment Health Maintenance Due Date Last Done Comments HEPATITIS C SCREENING 09/27/2011 DTAP/TDAP/TD VACCINES (1 - Tdap) 2012 HEPATITIS B VACCINE (1 of 3 - 19+ 3-dose series) 2012 PNEUMOCOCCAL VACCINE (1 of 2 - PCV) 2012 HPV VACCINE (1 - 3-dose SCDM series) 2020 DEPRESSION SCREENING 04/28/2024 COVID-19 VACCINE (1 - 2023-2 5 season) 2024 INFLUENZA VACCINE (#1) 2024 PAP SMEAR 03/10/2026 03/10/2023 ZOSTER VACCINE (1 of 2) 10/02/2043 HIV [...] patient's age to complete this topic Insurance [facility]
--- OUTSIDE RECORDS SUMMARY | 2025-01-27 10:07 | XMS_ITS | Patient Health Record ---
Author Organization [facility] Address [address] [place] [address] Care Team Providers Care Joint Sealer Name Role Phone Edis Carlisle Unavailable [phone] Reason For Referral No Information Medications Medication SIG (Take, Route, Frequency, Duration) Notes Start Date End Date Status Azithromycin 250 MG Tablet Oral Active methylPREDNISolone 4 MG Tabl et Therapy Pack Oral Active Citalopram Hydrobromide 10 M G Tablet Oral Active Propranolol HCl 10 MG Tablet Oral Active hydrOXYzine Pamoate 50 MG Capsule Oral Active Citalopram Hydrobromide 40 M G Tablet Oral Active Ergocalciferol 1.25 MG (5000 0 UT) Capsule Oral Active Venlafaxine HCl ER 37.5 MG Capsule Extended Release 24 Hour Oral Active Metoprolol Tartrate 25 MG Tablet Oral Active dilTIAZem HCl ER Beads 120 M G Capsule Extended Release 24 Hour Oral Active PARoxetine HCl 20 MG Tablet Oral Active Ondansetron 4 MG Tablet Disintegrating Oral Active Citalopram Hydrobromide 20 M G Tablet Oral Active Clindamycin HCl 300 MG Capsule Oral Active ProAir HFA 108 (90 Base) MCG/ACT Aerosol Solution Inhalation Act job HYDROcodone-Acetaminophen 5-325 MG Tablet Oral Active Benzonatate 100 MG Capsule Oral Active Meloxicam 7.5 MG Tablet Oral Active LORazepam 0.5 MG Tablet Oral Active Nitrofurantoin Monohyd Macro 100 MG Capsule Oral Active LORazepam 1 MG Tablet Oral Active Venlafaxine HCl ER 75 MG Capsule Extended Release 24 Hour Oral Active FLUoxetine HCl 10 MG Tablet Oral Active Rosuvastatin Calcium 40 MG Tablet Oral Active Plan Of Treatment No Information
--- OUTSIDE RECORDS SUMMARY | 2025-01-27 10:07 | XMS_ITS | Clinical Summary ---
Author Organization [facility] Address [address] [place] [address] Care Team Providers Care Track Greaser Name Role Phone Unavailable Primary Care Provider Unavailabl e Social History Tobacco Use Types Packs/Day Years Used Date Smoking Tobacco: Never Assessed Comments Unknown Sex and Gender Information Value Date Recorded Sex Assigned at Not on file Legal Sex Female 8:37 PM CDT Gender Identity Not on file Sexual Orientation Not on file Plan of Treatment Health Maintenance Due Date Last Done Comments Cervical Cancer Screening Pa p Smear (Age 30 to 64) Every 3 Years 1993 Annual Physical 1996 Hepatitis C 10/02/2011 DTaP, Tdap and Td Vaccines ( 1 - Tdap) 2012 Hepatitis B Vaccines (1 of 3 - 19+ 3-dose series) 2012 HPV Vaccines (1 - 3-dose SCD M series) 2020 Cervical Cancer Screening Pa p with HPV Testing (Age 30 to 64) Every 5 Years 10/02/2023 Cervical Cancer Screening with HPV 10/02/2023 COVID-19 Vaccine ( - 2023-2 5 season) 2024 Meningococcal B Vaccine Aged Out No l onger eligible based on patient's age to complete this topic Meningococcal Vaccine Aged Out No carol[place] anish eligible based on patient's age to complete this topic Pneumococcal Vaccine: Pediat rics (0 to 5 Years) and At-Risk Patients (6 to 49 Years) Aged Out No longer eligible b ased on patient's age to complete this topic RSV Immunizations Under 20 Months Aged Out No longer eligible based on patient's age to complete this topic
--- OUTSIDE RECORDS SUMMARY | 2025-01-27 10:07 | XMS_ITS | Patient Health Record ---
Author Organization [facility] Address [address] [place] [address] Care Team Providers Care Signal Circuit Designer Name Role Phone Peyton Morgan Primary Care Provider [phone] Fabiana Bailey Unavailable [phone] Allergies No Known Allergies Reason For Referral No Information Medications Medication SIG (Take, Route, Frequency, Duration) Notes Start Date End Date Status Vivitrol 380 MG as directed Intramus cular every 28 days; Duration: 28 days 01/07/2024 Active Naltrexone HCl 50 MG 1/2 tablet Orally O nce; Duration: 1 days 01/07/2024 Active Propranolol HCl 10 MG 1 tablet Orally Tw ice a day prn anxiety; Duration: 30 day(s) 09/27/2021 Active PARoxetine HCl 20 MG 0.5 tablet daily at bedtime x 7 days, then increase to 1 tablet nightly Orally Once a day; Duration: 30 day(s) 09/27/2021 Active hydrOXYzine HCl Not- Taking Venlafaxine HCl ER 37.5 MG 1 tablet with food Orally Once a day; Duration: 7 days Active LORazepam 1 MG one [...] Status Risk Notes Problem Social anxiety disorder (34835373) Social anxiety disorder (F40.10) Active confirmed Problem Alcohol use disorder (5662417536) Alcohol use disorder (F10.99) Active confirmed Problem Obesity (239134274) Obesity (BMI 30-39.9) (E66.9) Active confirmed Problem Fatigue (08066595) Fatigue, unspecified type (R53.83) Active confirmed Problem Anxiety depression (050927714) Anxiety with depression (F41.8) Active confirmed Problem Tobacco use (052977051) Tobacco use disorder (F17.200) Active confirmed Plan Of Treatment No Information Insurance Providers Payer Name Payer Address Payer Phone Subscriber Number Group Number Insured Name Patient Relationship to Insured Coverage Start Date Coverage End Date [facility] Att Claims Department [address] [place] [address] [id number] Vanesa Preciado Self - patient is the insured 1 [facility] Claims Department [address] [place] [address] [id number] Vanesa Preciado Self - patient is the insured 1 Medications Administered Medication Instructions Date of Administration Dosage Notes Vivitrol 01/07/2024 380 mg Carol Brown 01/07/2024 10:18 AM CDT >Given Lt Gluteus, tolerated well. Medical (General) History Medical History History ICD Code ANXIETY PANIC ATTACKS Surgical History Surgery Date(Month/Year)
[2025-01-27 10:25] LABS: Alanine Aminotransferase 18 U/L (6-35); Anion Gap 7 mmol/L (4-12); Bilirubin,Total 0.7 mg/dL (0.2-1.3); Blood Urea Nitrogen 14 mg/dL (7-17); Calcium 8.3 mg/dL (8.4-10.2); Carbon Dioxide 20 mmol/L (22-30); Chloride 105 mmol/L (98-107); Cholesterol 238 mg/dL (0-200); Estimated Glomerular Filt Rate > 60; Glucose 99 mg/dL (65-110); HDL Direct 43 mg/dL; Sodium 132 mmol/L (137-145); Triglycerides 135 mg/dL (<150)
[2025-01-27 10:37] LABS: Albumin Level 4.0 g/dL (3.5-5.1); Alkaline Phosphatase 60 U/L (38-126); Aspartate Amino Transferase 22 U/L (14-36); Potassium 4.1 mmol/L (3.4-5.0); Total Protein 6.6 g/dL (6.3-8.2)
[2025-01-27 10:48] LABS: Syphilis IgG/IgM Antibody Non-Reactive (Nonreactive)
[2025-01-27 10:50] LABS: Thyroid Stimulating Hormone Reflex 1.180 uIU/mL (0.465-4.68)
[2025-01-27 11:01] LABS: HIV 1/2 Ab P24 Ag Result Negative (Negative)
[2025-01-28 08:09] LABS: HSV 1 IgG, Type Spec Reactive (Non Reactive); HSV 2 IgG, Type Spec Reactive (Non Reactive)
== END 2025-01-27 09:38 | disposition home or self-care (01) ==
LOC: ANHLAB 09:38
PROVIDERS: PCP Nurse Practitioner Family; Visit Provider Nurse Practitioner Family
DX: D64.9 Anemia, unspecified (principal); Z00.00 Encounter for general adult medical examination without abnormal findings; Z11.4 Encounter for screening for human immunodeficiency virus [HIV]; Z11.3 Encounter for screening for infections with a predominantly sexual mode of transmission; Z13.6 Encounter for screening for cardiovascular disorders; Z11.59 Encounter for screening for other viral diseases
CPT/HCPCS: 36415; 80053; 80061; 84443; 85025; 86593; 86695; 86696; 86703; 86803; 87491; 87591; 87661; G0432